=== PATIENT | female | born 1980 | race Caucasian/White ===

== ENCOUNTER 2019-07-01 09:28 | Outpatient (CLI) | payer MEDICAID, SELFPAY ==
--- NOTE | 2019-07-01 09:30 | US_ITS ---
WS: [id number] RIGHT UPPER QUADRANT ULTRASOUND HISTORY: Hep C COMPARISON: 02/02/2010. Liver: 14.5 cm in length. Normal size and echogenicity with no intrahepatic dilatation. No mass. Gallbladder: Prior cholecystectomy. CBD: 0.6 cm Pancreas: Normal size and echogenicity. Right kidney: 11.1 cm in length. Normal echogenicity with no mass or hydronephrosis. Aorta and IVC: Unremarkable. No ascites. US/US liver [id number] IMPRESSION: 1. Negative liver. 2. Prior cholecystectomy.
== END 2019-07-01 09:29 | disposition home or self-care (01) ==
PROVIDERS: Family Provider Family Medicine; PCP Family Medicine; Visit Provider Nurse Practitioner Family
DX: B18.2 Chronic viral hepatitis C (principal)
CPT/HCPCS: 76705

== ENCOUNTER → 2019-08-23 18:58 | Outpatient (BNVA) | payer MEDICAID, SELFPAY | PROVIDERS: Family Provider Family Medicine; PCP Family Medicine; Visit Provider Nurse Practitioner Family | DX: N89.8 Other specified noninflammatory disorders of vagina (principal) | CPT/HCPCS: 81000; 87491; 87591; 87661 ==

== ENCOUNTER → 2019-10-03 16:20 | Outpatient (BNVA) | payer MEDICAID, SELFPAY | PROVIDERS: Family Provider Family Medicine; PCP Family Medicine; Visit Provider Nurse Practitioner Family | DX: N39.0 Urinary tract infection, site not specified (principal); Z11.3 Encounter for screening for infections with a predominantly sexual mode of transmission | CPT/HCPCS: 81000; 87086; 87491; 87591; 87661 ==

== ENCOUNTER → 2019-10-18 11:15 | Outpatient (BNVA) | payer MEDICAID, SELFPAY | PROVIDERS: Family Provider Family Medicine; PCP Family Medicine; Visit Provider Internal Medicine | DX: B18.2 Chronic viral hepatitis C (principal) | CPT/HCPCS: 80053; 85025; 87522 ==

== ENCOUNTER → 2019-11-09 18:46 | Outpatient (BNVA) | payer MEDICAID, SELFPAY | PROVIDERS: Family Provider Family Medicine; PCP Family Medicine; Visit Provider Nurse Practitioner | DX: J02.9 Acute pharyngitis, unspecified (principal) | CPT/HCPCS: 87071; 87880 ==

== ENCOUNTER → 2020-05-01 08:43 | Outpatient (BNVA) | payer BC, MEDICAID, SELFPAY | PROVIDERS: Family Provider Family Medicine; PCP Family Medicine; Referring Provider Family Medicine; Visit Provider Anesthesiology Pain Medicine | DX: M25.561 Pain in right knee (principal); M25.562 Pain in left knee; F17.290 Nicotine dependence, other tobacco product, uncomplicated | CPT/HCPCS: 99204 ==

== ENCOUNTER → 2020-06-23 13:58 | Outpatient (BNVA) | payer BC, MEDICAID, SELFPAY | PROVIDERS: Family Provider Family Medicine; PCP Family Medicine; Visit Provider Obstetrics & Gynecology | DX: N39.3 Stress incontinence (female) (male) (principal); R10.2 Pelvic and perineal pain; G89.29 Other chronic pain; N81.10 Cystocele, unspecified | CPT/HCPCS: 81000 ==

== ENCOUNTER → 2020-06-29 08:50 | Outpatient (BNVA) | payer BC, MEDICAID, SELFPAY | PROVIDERS: Family Provider Family Medicine; PCP Family Medicine; Visit Provider Obstetrics & Gynecology | DX: R32 Unspecified urinary incontinence (principal) | CPT/HCPCS: 76830 ==

== ENCOUNTER → 2020-07-07 11:50 | Outpatient (BNVA) | payer BC, MEDICAID, SELFPAY | PROVIDERS: Family Provider Family Medicine; PCP Family Medicine; Visit Provider Obstetrics & Gynecology | DX: Z12.4 Encounter for screening for malignant neoplasm of cervix (principal) | CPT/HCPCS: 88175 ==

== ENCOUNTER → 2020-07-28 11:50 | Outpatient (BNVA) | payer BC, MEDICAID, SELFPAY | PROVIDERS: Family Provider Family Medicine; PCP Family Medicine; Visit Provider Obstetrics & Gynecology | DX: R87.610 Atypical squamous cells of undetermined significance on cytologic smear of cervix (ASC-US) (principal); R87.810 Cervical high risk human papillomavirus (HPV) DNA test positive | CPT/HCPCS: 88305 ==

== ENCOUNTER → 2020-08-03 09:21 | Outpatient (BNVA) | payer BC, MEDICAID, SELFPAY | PROVIDERS: Family Provider Family Medicine; PCP Family Medicine; Visit Provider Obstetrics & Gynecology | DX: N81.10 Cystocele, unspecified (principal); N39.3 Stress incontinence (female) (male); Z20.822 Contact with and (suspected) exposure to COVID-19 | CPT/HCPCS: 87635 ==

== ENCOUNTER 2020-08-08 13:15 | Outpatient (CLI) | payer BC, MEDICAID, SELFPAY ==
[2020-08-08 12:49] VITALS: BMI 22.7
[2020-08-08 13:28] LABS: Basophils % 0.7 %; Eosinophils # 0.1 10^3/uL (0.0-0.8); Eosinophils % 2.6 %; Hematocrit 37.4 % (37.0-47.0); Hemoglobin 12.3 g/dL (11.5-15.3); Lymphocytes # 2.2 10^3/uL (0.8-4.8); Lymphocytes % 47.7 %; Mean Corpuscular HGB Conc 32.9 g/dL (30.0-36.0); Mean Corpuscular Hemoglobin 28.1 pg (28.0-34.0); Mean Corpuscular Volume 85.4 fL (81-99); Mean Platelet Volume 9.6 fL (7.4-10.4); Monocytes # 0.6 10^3/uL (0.2-0.9); Monocytes % 12.5 %; Neutrophils # 1.65 10^3/uL (1.8-7.7); Neutrophils % 36.3 %; Nucleated Red Blood Cells % 0 %; Platelet Count 275 10^3/cmm (130-400); Red Blood Count 4.38 10^6/uL (4.1-5.3); Red Cell Distribution Width 12.3 % (12.1-15.1); White Blood Count 4.6 10^3/uL (4.0-10.0)
[2020-08-08 13:47] LABS: Sulfosalicylic Acid Urine Negative (Negative); Urine Appearance Cloudy (CLEAR); Urine Color Yellow (Yellow); pH Urine 8 (5-7)
[2020-08-08 13:48] LABS: Add Urine Microscopic? YES; Bilirubin Urine Neg (Negative); Blood Urine Neg (Negative); Glucose Urine UA Norm (Normal); Ketones Urine Negative (Negative); Leukocyte Esterase Urine Negative (Negative); Nitrate Urine Negative (Negative); OR HCG Qualitative Urine Negative (Negative); Protein Urine Neg (Negative); Specific Gravity, Urine 1.015 (1.005-1.030); Urobilinogen Urine Norm (Negative)
[2020-08-08 13:49] LABS: Anion Gap 14.2 (5-19); Blood Urea Nitrogen 14 mg/dL (6-20); Calcium 9.1 mg/dL (8.5-10.5); Carbon Dioxide 30 mmol/L (22-29); Chloride 101 mmol/L (98-107); Glomerular Filtration Rate 110.7 mL/min (90-130); Glucose 84 mg/dL (65-115); Osmolality Calculated 292 mOsm/kg (285-295); Potassium 4.2 mmol/L (3.5-5.1); Sodium 141 mmol/L (136-145)
[2020-08-08 13:50] LABS: Add Urine Culture? No; Amorphous Sediment Urine 3+ /hpf; Bacteria Urine 1+ /hpf; Mucus Urine TRACE /hpf; Squamous Epithelial Cell Urine 0-4 /hpf (0-5)
== END 2020-08-08 13:16 | disposition home or self-care (01) ==
LOC: OPS 11-20 15:48
PROVIDERS: PCP Family Medicine; Visit Provider Obstetrics & Gynecology
DX: Z01.818 Encounter for other preprocedural examination (principal); N81.10 Cystocele, unspecified; N39.3 Stress incontinence (female) (male)
CPT/HCPCS: 80048; 81001; 84703; 85025; 86850; 86900

== ENCOUNTER 2021-06-27 05:48 | Day surgery (SDC) | payer BC, MEDICAID, SELFPAY ==
[2021-06-22 12:55] VITALS: BMI 21.9
[2021-06-27] VITALS (9 sets, daily range): BP systolic 97–137; BP diastolic 54–102; PULSE 75–92; RESP 12–20; TEMP 36.1–36.9; O2SAT 99–100
[2021-06-27 06:24] LABS: Add Urine Microscopic? NO; Charge for UA Resulting for Rev
[2021-06-27] MEDS: scopolamine 1.5 Patch 1 PATCH TRANSDERMA (06:25)
[2021-06-27 06:33] LABS: Bilirubin Urine Neg (Negative); Blood Urine Neg (Negative); Glucose Urine UA Norm (Normal); Ketones Urine Negative (Negative); Leukocyte Esterase Urine Negative (Negative); Nitrate Urine Negative (Negative); OR HCG Qualitative Urine Negative (Negative); Protein Urine Neg (Negative); Specific Gravity, Urine 1.025 (1.005-1.030); Urine Appearance Clear (CLEAR); Urine Color Yellow (Yellow); Urobilinogen Urine Norm (Negative); pH Urine 5 (5-7)
[2021-06-27] MEDS: sodium chloride 0.9% 500 ML IV (06:35)
--- NOTE | 2021-06-27 06:38 | ANES.PREANE2 ---
Pre-Anesthetic Assessment Height/Weight: Height 1.7 m Weight 63.503 kg Temp Pulse Resp BP Pulse Ox 98.4 F 83 20 H 129/83 100 06/27/21 06:15 06/27/21 06:15 06/27/21 06:15 06/27/21 06:15 06/27/21 06:15 Preop Diagnosis: KAEL-2 Operation Date: 06/27/21 07:00 Proposed Procedures p Cervical Cone biopsy 18501/n87.1(Not Applicable) - Gamaliel Arora MD Familial anesthetic complications: None Was Beta Deborah taken within 24 hours: N/A Was Clonidine taken within 24 hours: N/A Last intake: Intake Last Liquid Date 06/26/21 Last Liquid Time 23:30 Last Solid Date 06/26/21 Last Solid Time 18:00 Social Tobacco methadone Exam alert, oriented x 3, clear to auscultation bilaterally and regular rate & rhythm Airway Mallampati: Class II Dentition: other (missing) Hepatic Hepatitis (Hep C (Patient stated she did not have any liver problems upon questioning)) Metabolic Thyroid Disease (patient deines) Anesthetic Plan ASA status: 3 Anesthesia: General Risk of > 500 ml blood loss (7ml/kg in children): No Medications/Allergies Home Medications Medication Instructions Recorded Confirmed Last Taken Type sumatriptan succinate 100 mg tablet 100 mg PO Q2H PRN 05/01/20 06/25/21 06/20/21 History methadone 10 mg/mL oral concentrate 30 mg PO DAILY 06/22/21 06/25/21 06/26/21 History Allergies Allergy/AdvReac Type Severity Reaction Status Date / Time No Known Allergies Allergy Verified 06/25/21 11:15 [facility] Anesthesia Medical History History of femur fracture surgery to both femur with metal rods and plates placed. Hypothyroidism Seizure disorder as a child Surgical History H/O breast augmentation History of tonsillectomy Family History Mother Hypertension Hepatitis Thyroid condition Family/Other Breast cancer maternal great aunts, age onset unknown Denies family history of Colon cancer Ovarian cancer Diabetes Clotting disorder Heart disease Hyperlipidemia Anesthesia complication Bleeding disorder Uterine cancer Stroke Social History (Updated 06/04/21 @ 08:58 by Hien Guerra RN) Other details last substance use: pain medication and methamphetamines, last use in 2019 Female Reproductive History Date of last menstrual period: 07/17/20 Data Anesthesia Urine 06/27/21 Range/Units 06:10 Urine Color Yellow (Yellow) Urine Appearance Clear (CLEAR) Urine pH 5 (5-7) Ur Specific [place] 1.025 (1.005-1.030) Urine Protein Neg (Negative) Urine Glucose (UA) Norm (Normal) Urine Ketones Negative (Negative) Urine Nitrate Negative (Negative) Urine Bilirubin Neg (Negative) Ur Leukocyte Esterase Negative (Negative) Cardiac Studies: No Data to Display
--- NOTE | 2021-06-27 06:56 | W.PM.OPSUD ---
Surgery/Procedure H&P Update DATE OF PROCEDURE: June 27, 2021 DATE H&P PERFORMED: 06/25/21 H&P UPDATE INFORMATION: I have reviewed H&P completed within last 30 days and Changes to prior documentation as noted here PREOP DIAGNOSIS: KAEL-2 PLANNED PROCEDURE: Operation Date: 06/27/21 07:00 Proposed Procedures p Cervical Cone biopsy 35071/n87.1(Not Applicable) - Gamaliel Arora MD
[2021-06-27] MEDS: sodium chloride 0.9% 1,000 ML 30 ML IV (07:26)
[2021-06-27 07:36] LABS: Basophils % 0.4 %; Eosinophils # 0.2 10^3/uL (0.0-0.8); Eosinophils % 3.3 %; Hematocrit 39.7 % (37.0-47.0); Hemoglobin 13.2 g/dL (11.5-15.3); Lymphocytes # 2.3 10^3/uL (0.8-4.8); Mean Corpuscular HGB Conc 33.2 g/dL (30.0-36.0); Mean Corpuscular Volume 87.3 fl (81-99); Mean Platelet Volume 9.9 fL (7.4-10.4); Monocytes # 0.6 10^3/uL (0.2-0.9); Neutrophils # 3.88 10^3/uL (1.8-7.7); Nucleated Red Blood Cells % 0 %; Platelet Count 273 10^3/cmm (130-400); Red Blood Count 4.55 10^6/uL (4.1-5.3)
[2021-06-27 07:55] LABS: Alanine Aminotransferase 29 U/L (0-33); Albumin Level 4.2 g/dL (3.5-5.2); Alkaline Phosphatase 94 IU/L (35-105); Anion Gap 12.6 (5-19); Aspartate Amino Transferase 25 U/L (0-32); Blood Urea Nitrogen 10 mg/dL (6-20); Calcium 9.1 mg/dL (8.5-10.5); Carbon Dioxide 25 mmol/L (22-29); Chloride 104 mmol/L (98-107); Globulin 2.7 g/dL (1.3-4.6); Glomerular Filtration Rate 92.7 mL/min (90-130); Glucose 87 mg/dL (65-115); Osmolality Calculated 284 mOsm/kg (285-295); Potassium 3.6 mmol/L (3.5-5.1); Sodium 138 mmol/L (136-145); Total Bilirubin 0.8 mg/dL (0.15-1.2); Total Protein 6.9 g/dL (6.6-8.7)
--- NOTE | 2021-06-27 09:24 | P.OP_ITS ---
Operative Report Date of procedure: June 27, 2021 Pre-op diagnosis: Preop Diagnosis KAEL-2 Procedure done: Cervical cone biopsy via [place] Estimated blood loss (mL): 5 IV fluids (mL): 700 Complications: none Procedure: After informed consent, the patient was taken to the operating room where general anesthesia was administered without difficulty. After administration of general anesthesia, the patient was placed in the dorsal lithotomy position, and prepped and draped in the usual sterile fashion. A time-out procedure was performed. The patient was examined under anesthesia and found to have a normal uterus with normal adnexa. A weighted speculum was then placed in the patient's vagina and the anterior lip of the cervix grasped with the singed toothed tenaculum A uterine sound was then advanced into the cervix to determine its direction and length. The decending cervical branchs of the uterine arteries were ligated with 2-0 Vicryl bilaterally at the level of the internal os. Attention was then turned to the cervix where it was stain with Lugol?s solution to hightlight the lesion. The paracervical area was then circumferentially infiltrated using Lidocaine 1% with epinephrine. A [email or web address] Cone Biopsy Excisor was used to cut the cone biopsy in circular fashion and following removal of the specimen a suture was placed at the 12 o?clock location and fixed in formalin. Bleeding was minimal. The patient tolerated the procedure well, sponge, lap and needle counts were correct times two She was taken to the recovery room in good condition.
--- NOTE | 2021-06-27 13:33 | ANE.PACU2 ---
Inpatient post-anesthesia follow up: Airway intact: Yes Vital signs: Temperature 97.0 F Pulse Rate 87 Respiratory Rate 18 Blood Pressure 116/78 Pulse Oximetry 100 Oxygen Delivery Me thod Room Air Oxygen Flow Rate 6 Fraction of Inspir ed Oxygen Hydration adequate: Yes Nausea and vomiting: No Pain level: 2 Mental status: Baseline
== END 2021-06-27 09:57 | disposition home or self-care (01) ==
PROVIDERS: PCP Family Medicine; Visit Provider Obstetrics & Gynecology
PROC: 0UB97ZZ Excision of Uterus, Via Natural or Artificial Opening (ICD-10-PCS; CPT 57520; principal; 2021-06-27 07:00)
DX: N87.1 Moderate cervical dysplasia (principal); Z86.19 Personal history of other infectious and parasitic diseases; E03.9 Hypothyroidism, unspecified
CPT/HCPCS: 57522; 36415; 80053; 81003; 81025; 84703; 85025; 86850; 86900; 88307; J0690; J1100; J1200; J1885; J2250; J2405; J2704; J3010; J3490; J7030; J7040

== ENCOUNTER 2021-10-13 14:04 | Emergency (ER) | payer BC, MEDICAID, SELFPAY ==
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
[2021-10-13 14:15] VITALS: BP 127/89; PULSE 73; RESP 18; TEMP 37.1; O2SAT 100; BMI 24.3
== END 2021-10-13 16:18 | disposition home or self-care (01) ==
PROVIDERS: Emergency Provider Emergency Medicine; PCP Family Medicine
DX: T40.2X1A Poisoning by other opioids, accidental (unintentional), initial encounter (principal); Z79.891 Long term (current) use of opiate analgesic
CPT/HCPCS: 99283

== ENCOUNTER 2022-01-26 20:52 | Emergency (ER) | payer BC, MEDICAID, SELFPAY ==
[2022-01-26 20:54] VITALS: BP 149/91; PULSE 100; RESP 17; TEMP 36.8; O2SAT 98
--- NOTE | 2022-01-26 21:11 | W.ED.ABDPA2 ---
HPI - Abdominal Pain General: Chief Complaint: Abdominal Pain Stated Complaint: ABD Pain Time Seen by Provider: 01/26/22 21:04 History of Present Illness: 41-year-old female who comes in with crampy abdominal pain with associated diarrhea. She states she had cramping in her mid and lower left-sided abdomen about an hour prior to arrival. She had 1 episode of diarrhea which was foul-smelling. She denies nausea or vomiting. She denies fever. She had a previous cholecystectomy. Associated Symptoms: Reports diarrhea; Denies chills, dysuria, fever(s), hematemesis, melena, nausea and vomiting Related Data: Date of Last Menstrual Period: 07/17/20 Review of Systems General: Reports: 10 or more systems reviewed and unremarkable except in HPI and below Const: Denies: fever(s) or chills GI: Reports: abdominal pain and diarrhea; Denies: nausea, vomiting, hematemesis, melena or mucus in stool : Denies: flank pain, difficulty voiding or dysuria PFSH ED PFSH: Medical History (Updated 01/26/22 @ 22:02 by Doris Underwood MD) History of femur fracture surgery to both femur with metal rods and plates placed. Hypothyroidism Seizure disorder as a child Surgical History (Updated 07/13/21 @ 08:49 by Hien Guerra RN) H/O breast augmentation History of tonsillectomy Family History Mother Hypertension Hepatitis Thyroid condition Family/Other Breast cancer maternal great aunts, age onset unknown Denies family history of Colon cancer Ovarian cancer Diabetes Clotting disorder Heart disease Hyperlipidemia Anesthesia complication Bleeding disorder Uterine cancer Stroke Social History (Updated 06/04/21 @ 08:58 by Hien Guerra RN) Other details last substance use: pain medication and methamphetamines, last use in 2019 Female Reproductive History: Date of last menstrual period: 07/17/20 Physical Exam Const: COMMON NORMALS: no acute distress, average body habitus and patient oriented x3 HENMT: COMMON NORMALS: normocephalic HEAD & SCALP: normocephalic Neck/C-Spine: COMMON NORMALS: full ROM Cardio: COMMON NORMALS: regular rate and regular rhythm RATE: regular rate RHYTHM: regular rhythm GI: COMMON NORMALS: Normal to inspection, nondistended, normoactive bowel sounds present and Soft to palpation; negative for non-tender PALPATION: Yes Soft to palpation OTHER: Tenderness in the left lower quadrant. Abdomen is soft, no rebound or guarding. Extremity: GENERAL: Yes normal exam except as noted Neuro: COMMON NORMALS: patient oriented x3 Skin: COMMON NORMALS: no rashes or lesions noted GENERAL SKIN EXAM: no rashes or lesions noted Course ED course: Patient's been evaluated in the emergency department. She had an IV placed and labs obtained. She has been given IV Toradol for pain. Her white blood cell count is normal. Urinalysis is negative. She is had no further diarrhea while in the ER. Likely this is viral gastroenteritis. Do not feel that further work-up or admission is indicated and feel she stable for discharge home. Vital Signs: Vital signs: Vital Signs Temperature 98.2 F 01/26/22 20:54 Pulse Rate 100 01/26/22 20:54 Respiratory Rate 17 01/26/22 20:54 Blood Pressure 149/91 01/26/22 20:54 Pulse Oximetry 98 01/26/22 20:54 Oxygen Delivery Me thod 01/26/22 20:54 MDM - Abdominal Pain Medical Decision Making Patient has benign abdominal examination. She is afebrile. Her white blood cell count is normal. She had 1 episode of diarrhea with no risk factors for C. difficile colitis. Hemoglobin is normal. Urinalysis is negative. She is tolerating p.o. fluids and feeling better after IV Toradol. Likely this is a viral gastroenteritis. Patient stable for discharge home. She can take Imodium 4 times a day as needed for diarrhea. Return precautions have been discussed. Differential Diagnosis Likely abdominal pain, constipation, gastroenteritis and pancreatitis Lab Data : 01/26/22 21:13 01/26/22 21:13 Labs/Radiology: Laboratory Results WBC 5.9 10^3/uL (4.0-10.0) 01/26/22 21:13 RBC 5.18 10^6/uL (4.1-5.3) 01/26/22 21:13 Hgb 14.6 g/dL (11.5-15.3) 01/26/22 21:13 Hct 44.9 % (37.0-47.0) 01/26/22 21:13 MCV 86.7 fl (81-99) 01/26/22 21:13 MCH 28.2 pg (28.0-34.0) 01/26/22 21:13 MCHC 32.5 g/dL (30.0-36.0) 01/26/22 21:13 RDW 12.1 % (12.1-15.1) 01/26/22 21:13 Plt Count 326 10^3/cmm (130-400) 01/26/22 21:13 MPV 9.5 fL (7.4-10.4) 01/26/22 21:13 Neut % (Auto) 43.8 % 01/26/22 21:13 Lymph % (Auto) 42.6 % 01/26/22 21:13 [place] % (Auto) 9.7 % 01/26/22 21:13 Eos % (Auto) 2.7 % 01/26/22 21:13 Baso % (Auto) 0.9 % 01/26/22 21:13 Neut # (Auto) 2.57 10^3/uL (1.8-7.7) 01/26/22 21:13 Lymph # (Auto) 2.5 10^3/uL (0.8-4.8) 01/26/22 21:13 [place] # (Auto) 0.6 10^3/uL (0.2-0.9) 01/26/22 21:13 Eos # (Auto) 0.2 10^3/uL (0.0-0.8) 01/26/22 21:13 Baso # (Auto) 0.1 10^3/uL (0.0-0.1) 01/26/22 21:13 Nucleated RBC % (auto) 0 % 01/26/22 21:13 Nucleated RBCs # 0.0 /100WBC 01/26/22 21:13 Sodium Cancelled 01/26/22 21:13 Potassium Cancelled 01/26/22 21:13 Chloride Cancelled 01/26/22 21:13 Carbon Dioxide Cancelled 01/26/22 21:13 Anion Gap Cancelled 01/26/22 21:13 BUN Cancelled 01/26/22 21:13 Creatinine Cancelled 01/26/22 21:13 GFR Calculation Cancelled 01/26/22 21:13 Glucose Cancelled 01/26/22 21:13 Calculated Osmolality Cancelled 01/26/22 21:13 Calcium Cancelled 01/26/22 21:13 Total Bilirubin Cancelled 01/26/22 21:13 AST Cancelled 01/26/22 21:13 ALT Cancelled 01/26/22 21:13 Alkaline Phosphatase Cancelled 01/26/22 21:13 Total Protein Cancelled 01/26/22 21:13 Albumin Cancelled 01/26/22 21:13 Globulin Cancelled 01/26/22 21:13 Lipase Cancelled 01/26/22 21:13 Urine Color Yellow (Yellow) 01/26/22 21:12 Urine Appearance Clear (CLEAR) 01/26/22 21:12 Urine pH 5 (5-7) 01/26/22 21:12 Ur Specific [place] 1.020 (1.005-1.030) 01/26/22 21:12 Urine Protein Neg (Negative) 01/26/22 21:12 Urine Glucose (UA) Norm (Normal) 01/26/22 21:12 Urine Ketones Negative (Negative) 01/26/22 21:12 Urine Blood 2+ (Negative) H 01/26/22 21:12 Urine Nitrate Negative (Negative) 01/26/22 21:12 Urine Bilirubin Neg (Negative) 01/26/22 21:12 Urine Urobilinogen 1 mg/dL (Negative) H 01/26/22 21:12 Ur Leukocyte Esterase Trace (Negative) H 01/26/22 21:12 Urine RBC None /hpf (0-2) 01/26/22 21:12 Urine WBC 0-4 /hpf (0-5) H 01/26/22 21:12 Ur Squamous Epith Cells 5-10 /hpf (0-5) H 01/26/22 21:12 Amorphous Sediment Not Reportable 01/26/22 21:12 Urine Bacteria None /hpf (NONE) 01/26/22 21:12 Discharge Plan Discharge Patient Disposition: Home Clinical Impression: Gastroenteritis Condition: Stable Prescriptions: No Action sumatriptan succinate 100 mg tablet 100 mg PO Q2H PRN (Reason: Headache) Rx Instructions: do not exceed 2 doses per 24 hrs methadone 10 mg/mL Concentrate 30 mg PO DAILY ibuprofen 800 mg tablet 800 mg PO TID PRN (Reason: pain) Qty: 60 0RF acetaminophen 325 mg capsule 325 mg PO Q4H PRN (Reason: fever or pain) Qty: 60 0RF Narcan 4 mg/actuation spray,non-aerosol 4 mg intranasal Q2M PRN (Reason: opioid overdose) Qty: 2 0RF Rx Instructions: spray 1 dose into ONE nostril; alternate nostrils w each dose until help arrives Discharge Orders: Discharge ED (Routine); Ordered 01/26/22 Ordered By: Doris Underwood Referrals: Mono Madrigal MD [Primary Care Provider] - Discharge Diet: Advance as tolerated Discharge Activity: Resume usual activity Patient Instructions: Gastroenteritis (ED), Opioid Safety, Pain Management Activity Restrictions/Additional Instructions: Take Imodium up to 4 times daily as needed for diarrhea. Take Tylenol and/or ibuprofen as needed for pain. Make sure you are taking plenty of fluids. Avoid milk products. Return for symptoms are worsening. Follow-up as needed with your primary care doctor. Coding Level of Care Code ED Environmental Conflict Manager for Chg Fwd Exam Detailed
[2022-01-26 21:19] LABS: Basophils # 0.1 10^3/uL (0.0-0.1); Basophils % 0.9 %; Eosinophils # 0.2 10^3/uL (0.0-0.8); Eosinophils % 2.7 %; Hematocrit 44.9 % (37.0-47.0); Hemoglobin 14.6 g/dL (11.5-15.3); Lymphocytes # 2.5 10^3/uL (0.8-4.8); Lymphocytes % 42.6 %; Mean Corpuscular HGB Conc 32.5 g/dL (30.0-36.0); Mean Corpuscular Hemoglobin 28.2 pg (28.0-34.0); Mean Corpuscular Volume 86.7 fl (81-99); Mean Platelet Volume 9.5 fL (7.4-10.4); Monocytes # 0.6 10^3/uL (0.2-0.9); Monocytes % 9.7 %; Neutrophils # 2.57 10^3/uL (1.8-7.7); Neutrophils % 43.8 %; Nucleated Red Blood Cells % 0 %; Platelet Count 326 10^3/cmm (130-400); Red Blood Count 5.18 10^6/uL (4.1-5.3); Red Cell Distribution Width 12.1 % (12.1-15.1); White Blood Count 5.9 10^3/uL (4.0-10.0)
[2022-01-26] MEDS: ketorolac 30 mg/mL INJ IVP (21:25)
[2022-01-26] MEDS: ondansetron 2 mg/ML SDV 2 mL 4 MG IVP (21:26)
[2022-01-26 21:49] LABS: Add Urine Microscopic? YES; Bilirubin Urine Neg (Negative); Blood Urine 2+ (Negative); Glucose Urine UA Norm (Normal); Ketones Urine Negative (Negative); Leukocyte Esterase Urine Trace (Negative); Nitrate Urine Negative (Negative); Protein Urine Neg (Negative); Urine Appearance Clear (CLEAR); Urine Color Yellow (Yellow); Urobilinogen Urine 1 mg/dL (Negative); pH Urine 5 (5-7)
[2022-01-26 21:51] LABS: Add Urine Culture? No; WBC Urine 0-4 /hpf (0-5)
[2022-01-26 22:10] VITALS: PULSE 92; RESP 18; O2SAT 98
== END 2022-01-26 22:05 | disposition home or self-care (01) ==
PROVIDERS: Emergency Provider Emergency Medicine; PCP Family Medicine
DX: K52.9 Noninfective gastroenteritis and colitis, unspecified (principal)
CPT/HCPCS: 81001; 85025; 96374; 96375; 99284; J1885; J2405

== ENCOUNTER 2022-02-14 11:08 | Emergency (ER) | payer BC, MEDICAID, SELFPAY ==
[2022-02-14 11:19] VITALS: BP 132/91; PULSE 92; RESP 16; TEMP 36.6; O2SAT 98
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
[2022-02-14] MEDS: tetanus-dipt-pertussis 0.5 mL SDV IM (11:43)
[2022-02-14 11:49] VITALS: BP 132/91; PULSE 92; RESP 16; TEMP 36.6; O2SAT 98
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
== END 2022-02-14 11:45 | disposition home or self-care (01) ==
PROVIDERS: Emergency Provider Family Medicine; PCP Family Medicine
DX: T22.231A Burn of second degree of right upper arm, initial encounter (principal); X08.8XXA Exposure to other specified smoke, fire and flames, initial encounter; Z23 Encounter for immunization
CPT/HCPCS: 71045; 90471; 90715; 99283

== ENCOUNTER → 2022-03-02 16:21 | Outpatient (BNVA) | payer BC, MEDICAID, SELFPAY | PROVIDERS: PCP Family Medicine; Visit Provider Registered Nurse Neonatal Intensive Care | DX: N39.0 Urinary tract infection, site not specified (principal); N76.0 Acute vaginitis; B96.89 Other specified bacterial agents as the cause of diseases classified elsewhere | CPT/HCPCS: 81000 ==

== ENCOUNTER 2022-04-09 22:55 | Emergency (ER) | payer BC, MEDICAID, SELFPAY ==
[2022-04-09 22:59] VITALS: BP 130/89; PULSE 110; RESP 20; TEMP 37; O2SAT 95; BMI 20.8
--- NOTE | 2022-04-10 00:05 | XRR_ITS ---
PROCEDURE INFORMATION: Exam: XR Right Femur Exam date and time: 04/10/2022 12:41 AM Age: 41 years old Clinical indication: Swelling, leg or foot; Thigh; Right; Prior surgery; Surgery type: Femoral plate fixation; Patient HX: C/O RT upper leg pain with swelling. TECHNIQUE: Imaging protocol: Radiologic exam of the Right femur. Views: 2 views. COMPARISON: No relevant prior studies available. FINDINGS: Bones/joints: No acute fracture or dislocation visualized. Distal right femur ORIF grossly intact with old distal femur deformity. Mild right hip DJD. Soft tissues: Unremarkable. XR/XR femur RT min 2V* 12044 IMPRESSION: 1. No acute finding visualized. 2. Distal right femur old deformity/prior trauma with ORIF. If pain persists, follow with orthopedics.
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
[2022-04-10 01:10] VITALS: PULSE 94; RESP 20; O2SAT 97
== END 2022-04-10 01:12 | disposition home or self-care (01) ==
PROVIDERS: Emergency Provider Nurse Practitioner Family; PCP Family Medicine
DX: S76.911A Strain of unspecified muscles, fascia and tendons at thigh level, right thigh, initial encounter (principal); W22.09XA Striking against other stationary object, initial encounter
CPT/HCPCS: 73552; 99283

== ENCOUNTER → 2022-07-19 12:52 | Outpatient (BNVA) | payer BC, MEDICAID, SELFPAY | PROVIDERS: PCP Family Medicine; Visit Provider Obstetrics & Gynecology | DX: Z01.818 Encounter for other preprocedural examination (principal); R87.810 Cervical high risk human papillomavirus (HPV) DNA test positive; R87.610 Atypical squamous cells of undetermined significance on cytologic smear of cervix (ASC-US); R87.619 Unspecified abnormal cytological findings in specimens from cervix uteri | CPT/HCPCS: 81025; 87624; 88305 ==

== ENCOUNTER 2022-09-04 12:18 | Observation (INO) | payer BC, MEDICAID, SELFPAY ==
[2022-09-03 13:13] VITALS: BMI 20.7
[2022-09-03 13:50] LABS: Basophils % 0.5 %; Eosinophils # 0.2 10^3/uL (0.0-0.8); Hematocrit 42.3 % (37.0-47.0); Hemoglobin 14.3 g/dL (11.5-15.3); Lymphocytes # 2.5 10^3/uL (0.8-4.8); Lymphocytes % 32.1 %; Mean Corpuscular HGB Conc 33.8 g/dL (30.0-36.0); Mean Corpuscular Hemoglobin 29.2 pg (28.0-34.0); Mean Corpuscular Volume 86.5 fl (81-99); Mean Platelet Volume 9.5 fL (7.4-10.4); Monocytes # 0.6 10^3/uL (0.2-0.9); Monocytes % 8.2 %; Neutrophils # 4.32 10^3/uL (1.8-7.7); Neutrophils % 55.8 %; Nucleated Red Blood Cells % 0 %; Platelet Count 301 10^3/cmm (130-400); Red Blood Count 4.89 10^6/uL (4.1-5.3); Red Cell Distribution Width 11.9 % (12.1-15.1); White Blood Count 7.7 10^3/uL (4.0-10.0)
[2022-09-03 13:58] LABS: OR HCG Qualitative Urine Negative (Negative); Specific Gravity, Urine 1.015 (1.005-1.030); Urine Appearance SL Hazy (CLEAR); Urine Color Yellow (Yellow); pH Urine 7 (5-7)
[2022-09-03 13:59] LABS: Add Urine Microscopic? YES; Bilirubin Urine Neg (Negative); Blood Urine Neg (Negative); Glucose Urine UA Norm (Normal); Ketones Urine Negative (Negative); Leukocyte Esterase Urine Negative (Negative); Nitrate Urine Negative (Negative); Protein Urine Neg (Negative); Urobilinogen Urine Norm (Negative)
[2022-09-03 14:17] LABS: Alanine Aminotransferase 61 U/L (0-33); Albumin Level 4.4 g/dL (3.5-5.2); Alkaline Phosphatase 107 U/L (35-105); Anion Gap 14.8 (5-19); Aspartate Amino Transferase 53 U/L (0-32); Blood Urea Nitrogen 14 mg/dL (6-20); Calcium 9.1 mg/dL (8.5-10.5); Carbon Dioxide 27 mmol/L (22-29); Chloride 100 mmol/L (98-107); Globulin 3.3 g/dL (1.3-4.6); Glomerular Filtration Rate 68.7 mL/min (90-130); Glucose 83 mg/dL (65-115); Osmolality Calculated 286 mOsm/kg (285-295); Potassium 3.8 mmol/L (3.5-5.1); Sodium 138 mmol/L (136-145); Total Bilirubin 0.5 mg/dL (0.15-1.2); Total Protein 7.7 g/dL (6.6-8.7)
[2022-09-03 14:21] LABS: Add Urine Culture? No; Amorphous Sediment Urine AMORPHOUS PHOSPHATES /hpf; Bacteria Urine TRACE /hpf; Squamous Epithelial Cell Urine 0-4 /hpf (0-5)
--- NOTE | 2022-09-03 17:50 | ANES.PREANE2 ---
Pre-Anesthetic Assessment Height/Weight: Height 1.7 m Weight 59.874 kg Operation Date: 09/04/22 10:10 Proposed Procedures p Anterior Repair Anterior Colporrhaphy(Not Applicable) - Gamaliel Aroar MD s [Anterior colporrhaphy 06719, Single incision mid urethral sling 66431], N81.10, R32(Not Applicable) - Gamaliel Arora MD Familial anesthetic complications: none Was Beta Deborah taken within 24 hours: N/A Was Clonidine taken within 24 hours: N/A Social Tobacco and No alcohol Exam alert, oriented x 3 and regular rate & rhythm Airway Submandibular: within normal limits Cervical ROM: within normal limits Mallampati: Class II Dentition: chipped Pulmonary Chronic Obstructive Pulmonary Disease Hepatic Hepatitis (C) Metabolic Thyroid Disease Neuropsych Headache Anesthetic Plan ASA status: 2 Anesthesia: General Medications/Allergies Home Medications Medication Instructions Recorded Confirmed Last Taken Type sumatriptan succinate 100 mg 100 mg PO Q2H PRN Headache 06/25/22 09/03/22 09/03/22 History tablet (Imitrex) metronidazole 500 mg tablet 500 mg PO BID 7 days #14 tabs 09/02/22 09/03/22 09/03/22 Rx Allergies Allergy/AdvReac Type Severity Reaction Status Date / Time No Known Allergies Allergy Verified 09/02/22 10:29 [facility] Anesthesia Medical History History of femur fracture surgery to both femur with metal rods and plates placed. Hypothyroidism Seizure disorder as a child Surgical History H/O breast augmentation History of tonsillectomy Family History Mother Hypertension Hepatitis Thyroid condition Family/Other Breast cancer maternal great aunts, age onset unknown Denies family history of Colon cancer Ovarian cancer Diabetes Clotting disorder Heart disease Hyperlipidemia Anesthesia complication Bleeding disorder Uterine cancer Stroke Social History Substance/Drug Use: former Other details last substance use: pain medication and methamphetamines, last use in 2019 Data Anesthesia 09/03/22 13:37 09/03/22 13:37 Short CBC 09/03/22 Range/Units 13:37 WBC 7.7 (4.0-10.0) 10^3/uL Hgb 14.3 (11.5-15.3) g/dL Hct 42.3 (37.0-47.0) % MCV 86.5 (81-99) fl Plt Count 301 (130-400) 10^3/cmm Neut % (Auto) 55.8 % Neut # (Auto) 4.32 (1.8-7.7) 10^3/uL BMP 09/03/22 13:37 Sodium 138 Potassium 3.8 Chloride 100 Carbon Dioxide 27 BUN 14 Creatinine 0.9 Glucose 83 Calcium 9.1 Liver Function 09/03/22 Range/Units 13:37 Total Bilirubin 0.5 (0.15-1.2) mg/dL AST 53 H (0-32) U/L ALT 61 H (0-33) U/L Alkaline Phosphatase 107 H (35-105) U/L Albumin 4.4 (3.5-5.2) g/dL Urine 09/03/22 Range/Units 12:25 Urine Color Yellow (Yellow) Urine Appearance Sl hazy A (CLEAR) Urine pH 7 (5-7) Ur Specific [place] 1.015 (1.005-1.030) Urine Protein Neg (Negative) Urine Glucose (UA) Norm (Normal) Urine Ketones Negative (Negative) Urine Nitrate Negative (Negative) Urine Bilirubin Neg (Negative) Ur Leukocyte Esterase Negative (Negative) Urine RBC None (0-2) /hpf Urine WBC None (0-5) /hpf Blood Bank 09/03/22 13:37 Blood Type O Positive Rho(D) Type Positive Antibody Screen Negative Cardiac Studies: No Data to Display
[2022-09-04] VITALS (16 sets, daily range): BP systolic 91–140; BP diastolic 56–98; PULSE 58–92; RESP 15–18; TEMP 36.3–36.9; O2SAT 96–100
[2022-09-04] MEDS: sodium chloride 0.9% 500 ML IV (08:57)
[2022-09-04] MEDS: scopolamine 1.5 Patch 1 PATCH TRANSDERMA (09:47)
--- NOTE | 2022-09-04 10:03 | W.PM.OPSUD ---
Surgery/Procedure H&P Update DATE OF PROCEDURE: September 04, 2022 DATE H&P PERFORMED: 09/02/22 H&P UPDATE INFORMATION: I have reviewed H&P completed within last 30 days, I have examined patient prior to procedure and No changes to prior documentation PREOP DIAGNOSIS: cystocele stage 2, urinary stress incontinenece PLANNED PROCEDURE: Operation Date: 09/04/22 10:10 Proposed Procedures p Anterior Repair Anterior Colporrhaphy(Not Applicable) - Gamaliel Arora MD s [Anterior colporrhaphy 51643, Single incision mid urethral sling 16016], N81.10, R32(Not Applicable) - Gamaliel Arora MD
[2022-09-04] MEDS: sodium chloride 0.9% 1,000 ML 30 ML IV (10:26)
[2022-09-04] MEDS: ceFAZolin 2,000 MG in sodium chloride 0.9% (plus) 50 ML 100 MG IV (10:36)
[2022-09-04] MEDS: lidocaine-epi 2% 20 mL INJ INJECTION (11:41)
[2022-09-04] MEDS: estrogens Conjugated Cream 30 gm 1 APPLIC VAGINAL (11:49)
--- NOTE | 2022-09-04 12:01 | PC.NURSE ---
Pt arrived to PACU, resting comfortably, oral airway in place, O2 at 6L/min via simple mask. Samaniego catheter patent and draining. Peripad in place-no drainage noted. SCD's in place and running.
--- NOTE | 2022-09-04 12:02 | P.OP_ITS ---
Operative Report Date of procedure: September 04, 2022 Pre-op diagnosis: Preop Diagnosis cystocele stage 2, urinary stress incontinenece Post-op diagnosis: Same as above Procedure done: Anterior colporrhaphy augmented with allograft. Single incision mid urethral sling. Cystoscopy. Implants: Coloplast Altis sling Surgeon: Gamaliel Arora MD Estimated blood loss (mL): 100 IV fluids (mL): 800 Urine output (mL): 100 Procedure: After obtaining informed consent, the patient was taken to the operating room and placed in the supine position, given general anesthesia, and prepped and draped in sterile fashion. The abdomen, vulva and vagina were prepped and draped in a sterile manner. A time out procedure was performed. The anterior vaginal mucosa beneath the midurethra was infiltrated with 0.5% Marcaine with epinephrine. A vertical midline incision was made beneath the midurethra, nearly 1.5 cm length. Careful submucosal dissection was performed bilaterally up to the interior portion of the inferior pubic ramus. The insertion of adductor longus tendon on the patient?s pubic ramus was identified as reference land apolonia. Palpated the notch along the internal edge of ischiopubic ramus where the adductor longus tendon and the inferior pubic ramus meet. The Altis single incision sling (SIS) was selected. Then the needle of the SIS inserted aiming at the location of this notch. One of the integrated self-fixating tips place onto the needle by sliding it over the end of the needle. The needle/sling assembly was inserted toward the location of identified reference notch making sure that the flat of the handle is perpendicular to the desired path. The needle was tracked along the posterior surface of the ischiopubic ramus until the midline apolonia on the mesh is approximately at the midline position under the urethra. The needle was removed and the same was repeated on the contralateral side until the appropriate sling tension under the urethra was achieved ensuring that the mesh lays flat. The needle was removed and vaginal incision was closed in a running interlocking fashion with 2-0 Vicryl. Then proceeded to perform the anterior colporrhaphy. The vaginal mucosa was then injected in the midline with normal saline. The vaginal mucosa was scored in the midline with the Bovie approximately 1 cm medial to the urethral meatus to 1 cm distal to the cervix. This vaginal mucosa was then undermined and then incised in the midline with the Metzenbaum scisso rs. The lateral aspects of the vaginal mucosa were then grasped with the Allis clamps and the vaginal mucosa was then dissected off the underlying fascia with the Metzenbaum scissors. Again, there was noted to be quite a bit of oozing at the incision, which was controlled with cautery. After adequate dissection was performed, bilaterally. The Coloplast allograft was modified at time of application to fit spacea, 3 x 3 cm piece . The allograft was placed in front of cystocele ready to be implanted facing the vagina mucosa. Suture is placed at distal end of graft and placed towards cervix. Final suture is placed on proximal portion of the graft to complete the placement overlying the bladder. Then Interrupted vertical mattress sutures of 0 Vicryl were used to elevate the cystocele superiorly. The excessive vaginal mucosa was then trimmed with the Metzenbaum scissors and the vaginal mucosa was then reapproximated in the running interlocking fashion with 2-0 Vicryl. Then the Samaniego catheter was removed and cystoscope was inserted. The bladder was filled with sterile water. Complete evaluation of the bladder mucosa was performed noting no lacerations, dimpling, tears, bleeding of the mucosa or muscular layers. Both ureteral orifices were identified. Prompt excretion of urine from both ureteral orifices was noted. Cystoscope was withdrawn. The Samaniego catheter was replaced. Ex cellent hemostasis was obtained. A vaginal pack is placed overnight as postoperative support for the vaginal tissues after graft placement and closure of vaginal incisions. Sponge, lap, needle, and instrument counts were correct times three. The patient was taken to the recovery room, awake and in stable condition. This documentation was created by [employer] hand wrapper operator software (known for inherent hand wrapper operator error). Every effort was made to assure accuracy of hand wrapper operator. But this EMR does not have a spelling medical dictionary.
--- NOTE | 2022-09-04 12:13 | PC.NURSE ---
Pt waking up, oral airway removed, pt tolerated well.
[2022-09-04] MEDS: dextrose 5%-lactated ringers 1,000 ML 125 ML IV ×2 (13:17→20:13)
--- NOTE | 2022-09-04 13:58 | P.ANESUD_ITS ---
Pre-Anesthetic Update Pre-Anesthetic Assessment: Date of Surgery/Procedure: 09/04/22 Preop Citlaly gnosis: cystocele stage 2, urinary stress incontinenece Proposed Procedure: Operation Date: 09/04/22 10:10 Proposed Procedures p Anterior Repair Anterior Colporrhaphy(Not Applicable) - Gamaliel Arora MD s [Anterior colporrhaphy 02540, Single incision mid urethral sling 26786], N81.10, R32(Not Applicable) - Gamaliel Arora MD Any changes to Pre-Anesthetic Assessment?: No Last Intake: Intake Last Liquid Date 09/03/22 Last Liquid Time 20:00 Last Solid Date 09/03/22 Last Solid Time 20:00 Labs Last 48hrs: Short CBC 09/03/22 Range/Units 13:37 WBC 7.7 (4.0-10.0) 10^3/ uL Hgb 14.3 (11.5-15.3) g/dL Hct 42.3 (37.0-47.0) % MCV 86.5 (81-99) fl Plt Count 301 (130-400) 10^3/c mm Neut % (Auto) 55.8 % Neut # (Auto) 4.32 (1.8-7.7) 10^3/u L BMP 09/03/22 13:37 Sodium 138 Potassium 3.8 Chloride 100 Carbon Dioxide 27 BUN 14 Creatinine 0.9 Glucose 83 Calcium 9.1 Liver Function 09/03/22 Range/Units 13:37 Total Bilirubin 0.5 (0.15-1.2) mg/dL AST 53 H (0-32) U/L ALT 61 H (0-33) U/L Alkaline Phosphata se 107 H (35-105) U/L Albumin 4.4 (3.5-5.2) g/dL Urine 09/03/22 Range/Units 12:25 Urine Color Yellow (Yellow) Urine Appearance Sl hazy A (CLEAR) Urine pH 7 (5-7) Ur Specific Gravit y 1.015 (1.005-1.030) Urine Protein Neg (Negative) Urine Glucose (UA) Norm (Normal) Urine Ketones Negative (Negative) Urine Nitrate Negative (Negative) Urine Bilirubin Neg (Negative) Ur Leukocyte Ranjana ase Negative (Negative) Urine RBC None (0-2) /hpf Urine WBC None (0-5) /hpf Blood Bank 09/03/22 13:37 Blood Type O Positive Rho(D) Type Positive Antibody Screen Negative Vitals: Temperature 98.2 F 09/04/22 12:31 Temperature Source Temporal Artery S can 09/04/22 12:31 Pulse Rate 74 09/04/22 12:31 Respiratory Rate 16 09/04/22 12:31 Blood Pressure 131/92 09/04/22 12:31 Blood Pressure Vicky n 105 09/04/22 12:31 Pulse Oximetry 100 09/04/22 12:31 Oxygen Delivery Me thod Room Air 09/04/22 12:31 Oxygen Flow Rate 6 09/04/22 12:11 Exam: Pre-Anes Outpt Exam: alert, oriented x 3, clear to auscultation bilaterally and regular rate & rhythm Cardiac Studies: No Data to Display
--- NOTE | 2022-09-04 14:58 | ANE.PACU2 ---
Inpatient post-anesthesia follow up: Airway intact: Yes Vital signs: Temperature 98.2 F Pulse Rate 74 Respiratory Rate 16 Blood Pressure 131/92 Pulse Oximetry 100 Oxygen Delivery Me thod Room Air Oxygen Flow Rate 6 Fraction of Inspir ed Oxygen Hydration adequate: Yes Nausea and vomiting: No Pain level: 3 Mental status: Baseline
[2022-09-04] MEDS: docusate sodium 100 mg Capsule PO (18:21)
[2022-09-04] MEDS: ketorolac 30 mg/mL INJ IVP ×2 (18:21→23:54)
[2022-09-04] MEDS: metroNIDAZOLE 500 MG Tablet PO (18:22)
[2022-09-04] MEDS: HYDROcodone-acetaminophen 5-325 mg Tablet PO (20:02)
[2022-09-04] MEDS: nicotine 21 mg Patch 1 PATCH TRANSDERMA (21:12)
[2022-09-05] MEDS: HYDROcodone-acetaminophen 5-325 mg Tablet PO ×2 (02:20→10:27)
[2022-09-05 04:00] VITALS: BP 101/61; PULSE 74; RESP 16
[2022-09-05] MEDS: ketorolac 30 mg/mL INJ IVP (05:17)
[2022-09-05] MEDS: simethicone 80 mg Chew PO (05:17)
[2022-09-05 05:40] LABS: Hematocrit 34.5 % (37.0-47.0); Hemoglobin 11.4 g/dL (11.5-15.3); Mean Corpuscular Hemoglobin 29.2 pg (28.0-34.0); Mean Corpuscular Volume 88.2 fl (81-99); Mean Platelet Volume 9.9 fL (7.4-10.4); Platelet Count 244 10^3/cmm (130-400); Red Blood Count 3.91 10^6/uL (4.1-5.3); White Blood Count 8.2 10^3/uL (4.0-10.0)
[2022-09-05] MEDS: docusate sodium 100 mg Capsule PO (10:27)
[2022-09-05 10:30] VITALS: BP 113/70; PULSE 72
--- NOTE | 2022-09-05 10:40 | PM.OBGYDC ---
Discharge Providers AMBULATORY SERVICE REPRESENTATIVE Date of Admission: 09/04/22 12:18 Date of Discharge: 09/05/22 Attending Provider at Admission: Gamaliel Arora MD Attending Provider at Discharge: Gamaliel Arora MD Primary AMBULATORY SERVICE REPRESENTATIVE: Gamaliel Arora MD Primary Care Provider: Mono Madrigal MD Reason for Visit Reason for Visit: N81.10, R32 Hospital Course Hospital Course Mrs. Huddleston with 43-year-old female with a history of cystocele stage II and stress incontinence. Admitted for planned anterior colporrhaphy augmented with allograft and single incision mid urethral sling. These were performed without complication. She is afebrile hemodynamically stable postoperative day 1. PVR within normal limits. Tolerating diet well. Pain under control. Ambulating without difficulty. Physical Exam Narrative: GA: Alert and oriented ?3. HEENT: WNL. Heart: Regular rate and rhythm. Lungs: Clear to auscultation bilaterally. Abdomen: Bowel sounds present, minimal tenderness. FOUNTAIN PEN TURNER: Spotting bleeding. Extremities: No edema, no cyanosis, no calves pain. Urinary Catheter Management: [place]: Cath Placed During This Visit: yes, but has since been removed by the nurse Reason for Continuing Indwelling Catheter: Decision to DC Catheter Urinary Catheter Date of Insertion: 09/04/22 Urinary Catheter Time of Insertion: 11:03 Date Urinary Catheter Removed: 09/05/22 Time Urinary Catheter Discontinued: 05:38 History History History 3 Term 3 0 Miscarriages/Ectopic 0 Living Children 3 Discharge Data Studies Completed and Pending Laboratory Results WBC 8.2 10^3/uL (4.0-10.0) 09/05/22 05:30 RBC 3.91 10^6/uL (4.1-5.3) L 09/05/22 05:30 Hgb 11.4 g/dL (11.5-15.3) L 09/05/22 05:30 Hct 34.5 % (37.0-47.0) L 09/05/22 05:30 MCV 88.2 fl (81-99) 09/05/22 05:30 MCH 29.2 pg (28.0-34.0) 09/05/22 05:30 MCHC 33.0 g/dL (30.0-36.0) 09/05/22 05:30 RDW 12.0 % (12.1-15.1) L 09/05/22 05:30 Plt Count 244 10^3/cmm (130-400) 09/05/22 05:30 MPV 9.9 fL (7.4-10.4) 09/05/22 05:30 Neut % (Auto) 55.8 % 09/03/22 13:37 Lymph % (Auto) 32.1 % 09/03/22 13:37 [place] % (Auto) 8.2 % 09/03/22 13:37 Eos % (Auto) 3.0 % 09/03/22 13:37 Baso % (Auto) 0.5 % 09/03/22 13:37 Neut # (Auto) 4.32 10^3/uL (1.8-7.7) 09/03/22 13:37 Lymph # (Auto) 2.5 10^3/uL (0.8-4.8) 09/03/22 13:37 [place] # (Auto) 0.6 10^3/uL (0.2-0.9) 09/03/22 13:37 Eos # (Auto) 0.2 10^3/uL (0.0-0.8) 09/03/22 13:37 Baso # (Auto) 0.0 10^3/uL (0.0-0.1) 09/03/22 13:37 Nucleated RBC % (auto) 0 % 09/03/22 13:37 Nucleated RBCs # 0.0 /100WBC 09/03/22 13:37 Sodium 138 mmol/L (136-145) 09/03/22 13:37 Potassium 3.8 mmol/L (3.5-5.1) 09/03/22 13:37 Chloride 100 mmol/L (98-107) 09/03/22 13:37 Carbon Dioxide 27 mmol/L (22-29) 09/03/22 13:37 Anion Gap 14.8 (5-19) 09/03/22 13:37 BUN 14 mg/dL (6-20) 09/03/22 13:37 Creatinine 0.9 mg/dL (0.5-0.9) 09/03/22 13:37 GFR Calculation 68.7 mL/min (90-130) L 09/03/22 13:37 Glucose 83 mg/dL (65-115) 09/03/22 13:37 Calculated Osmolality 286 mOsm/kg (285-295) 09/03/22 13:37 Calcium 9.1 mg/dL (8.5-10.5) 09/03/22 13:37 Total Bilirubin 0.5 mg/dL (0.15-1.2) 09/03/22 13:37 AST 53 U/L (0-32) H 09/03/22 13:37 ALT 61 U/L (0-33) H 09/03/22 13:37 Alkaline Phosphatase 107 U/L (35-105) H 09/03/22 13:37 Total Protein 7.7 g/dL (6.6-8.7) 09/03/22 13:37 Albumin 4.4 g/dL (3.5-5.2) 09/03/22 13:37 Globulin 3.3 g/dL (1.3-4.6) 09/03/22 13:37 Urine Color Yellow (Yellow) 09/03/22 12:25 Urine Appearance Sl hazy (CLEAR) A 09/03/22 12:25 Urine pH 7 (5-7) 09/03/22 12:25 Ur Specific [place] 1.015 (1.005-1.030) 09/03/22 12:25 Urine Protein Neg (Negative) 09/03/22 12:25 Urine Glucose (UA) Norm (Normal) 09/03/22 12:25 Urine Ketones Negative (Negative) 09/03/22 12:25 Urine Blood Neg (Negative) 09/03/22 12:25 Urine Nitrate Negative (Negative) 09/03/22 12:25 Urine Bilirubin Neg (Negative) 09/03/22 12:25 Urine Urobilinogen Norm mg/dL (Negative) 09/03/22 12:25 Ur Leukocyte Esterase Negative (Negative) 09/03/22 12:25 Urine RBC None /hpf (0-2) 09/03/22 12:25 Urine WBC None /hpf (0-5) 09/03/22 12:25 Ur Squamous Epith Cells 0-4 /hpf (0-5) H 09/03/22 12:25 Amorphous Sediment Amorphous phosphates /hpf 09/03/22 12:25 Urine Bacteria Trace /hpf (NONE) 09/03/22 12:25 Urine Mucus None /hpf 09/03/22 12:25 Urine HCG, Qual Negative (Negative) 09/03/22 12:25 Blood Type O Positive 09/03/22 13:37 Rho(D) Type Positive 09/03/22 13:37 Antibody Screen Negative 09/03/22 13:37 Vitals Last Vital Signs Temp 98.4 F 09/04/22 22:00 Pulse 72 09/05/22 10:30 Resp 16 09/05/22 04:00 BP 113/70 09/05/22 10:30 Pulse Ox 96 09/04/22 22:00 O2 Del Method Room Air 09/05/22 04:00 O2 Flow Rate 6 09/04/22 12:11 Discharge Plan Discharge Patient Disposition: Home Condition: Stable Prescriptions: New hydrocodone-acetaminophen 5-325 mg tablet 1 tab PO Q4H PRN (Reason: pain) Qty: 10 0RF acetaminophen 325 mg capsule 325 mg PO Q4H PRN (Reason: fever or pain) Qty: 60 0RF ibuprofen 800 mg tablet 800 mg PO TID PRN (Reason: pain) Qty: 60 0RF Continued sumatriptan succinate [Imitrex] 100 mg tablet 100 mg PO Q2H PRN (Reason: Headache) Rx Instructions: do not exceed 2 doses per 24 hrs metronidazole 500 mg tablet 500 mg PO BID 7 Days Qty: 14 0RF Discharge Orders: Discharge Order (Routine); Ordered 09/05/22 Ordered By: Gamaliel Arora Referrals: Gamaliel Arora MD [Physician] - 2 weeks Discharge Diet: Usual diet Discharge Activity: Limit activity as instructed Patient Instructions: Opioid Safety, Bladder Sling for Women (GEN), Anterior Vaginal Repair (GEN) Activity Restrictions/Additional Instructions: 1. Please call [facility] on next working day to make your post-operative appointment in 2 weeks. 2. Please stay home until you come back to the clinic on first post-hospatilization check up. 3. Please follow instructions on your medications CAREFULLY. 4. If you have abdominal incision, do not cover it unless dressing is necessary because of drainage. OK to shower, but avoid bath. Leave steri-strips until they fall off. If they are still on one week after surgery, you may remove them. 5. If you had vaginal surgery or vaginal repair, Dr. Arora may instruct you to take SITZ bath. 6. Yellow, blood tinged odorous vaginal discharge is usually normal after hysterectomy or vaginal surgeries. 7. No SEXUAL INTERCOURSE, tampons, or douches until you are completely released from the post-operative care. 8. Avoid constipation by eating right and maybe using some Metamucil or Milk of Magnesia. 9. All prescription refills are given during the working hours. Please do no wait till it runs out. Call the clinic at [phone] before your medication runs out. The clinic will get in touch with your doctor to prescribe medications if necessary. 10. Please remain within 40 mile radius from our hospital because emergencies do happen now and then during the post-operative period. 11. If you have stairs at home, take one step at a time slowly and minimize the number of trips. It helps to stay in one floor for the next few days. No lifting except what you can lift by one hand until you are released from the post-operative care. 12. Driving is discouraged until you are well healed. It may be 3-4 weeks before you feel strong enough to drive. You should be able to turn and look through the rear window without pain and you should be able to push the brake pedal very hard without pain before you drive. No fast rules, but SAFETY should be your primary concern. DO NOT drive if you are on sedating medications such as narcotics. 13. Call the clinic (during working hours) to make urgent appointment or go to the Emergency room, if any of the following occurs: i. Vaginal bleeding becomes heavy, more than a period. ii. Incision becomes red and sore, or drains pus. iii. Your TEMPERATURE is over 100.4F or you have chill. iv. IV site becomes red and swollen (a little ``knot?? is usually OK) v. Persistent nausea and vomiting vi. Persistent constipation or diarrhea vii. Rash or allergic reaction to medications. Discharge Attestations AMBULATORY SERVICE REPRESENTATIVE Time Spent in Discharge Care*: greater than 30 min Specific Discharge Activities: Specific discharge activities: evaluating patient/reviewing data (Postvoid residual) Coding Level of Care Code Acute Code for Chg Fwd Diagnoses
[2022-09-05 11:47] VITALS: BP 118/73; PULSE 72; RESP 18
== END 2022-09-05 11:47 | disposition home or self-care (01) ==
LOC: OBGYN 12:19
PROVIDERS: Admitting Provider Obstetrics & Gynecology; PCP Family Medicine; Visit Provider Obstetrics & Gynecology
PROC: 0JQC0ZZ Repair Pelvic Region Subcutaneous Tissue and Fascia, Open Approach (ICD-10-PCS; CPT 57240; principal; 2022-09-04 10:00)
PROC: (CPT 57288; 2022-09-04 10:00)
PROC: 0TJB8ZZ Inspection of Bladder, Via Natural or Artificial Opening Endoscopic (ICD-10-PCS; CPT 52000; 2022-09-04 10:00)
DX: N81.10 Cystocele, unspecified (principal); N39.3 Stress incontinence (female) (male); J44.9 Chronic obstructive pulmonary disease, unspecified; Z86.19 Personal history of other infectious and parasitic diseases
CPT/HCPCS: 57240; 57288; 36415; 51798; 80053; 81001; 84703; 85025; 85027; 86850; 86900; 96374; 96376; C1713; C1762; G0378; J0690; J1100; J1170; J1885; J2250; J2370; J2405; J2704; J2710; J3010; J3490; J7030; J7040; J7121

== ENCOUNTER → 2022-11-15 13:55 | Outpatient (BNVA) | payer BC, MEDICAID, SELFPAY | PROVIDERS: PCP Family Medicine; Visit Provider Obstetrics & Gynecology | DX: N90.89 Other specified noninflammatory disorders of vulva and perineum (principal) | CPT/HCPCS: 88305; 88342 ==

== ENCOUNTER → 2023-01-17 13:39 | Outpatient (BNVA) | payer BC, MEDICAID, SELFPAY | PROVIDERS: PCP Family Medicine; Visit Provider Obstetrics & Gynecology | DX: N73.9 Female pelvic inflammatory disease, unspecified (principal); R10.2 Pelvic and perineal pain; Z20.2 Contact with and (suspected) exposure to infections with a predominantly sexual mode of transmission; N73.0 Acute parametritis and pelvic cellulitis | CPT/HCPCS: 87491; 87591 ==

== ENCOUNTER → 2023-05-22 15:30 | Outpatient (BNVA) | payer BC, MEDICAID, SELFPAY | PROVIDERS: PCP Family Medicine; Visit Provider Obstetrics & Gynecology | DX: Z11.3 Encounter for screening for infections with a predominantly sexual mode of transmission (principal); N76.0 Acute vaginitis; B96.89 Other specified bacterial agents as the cause of diseases classified elsewhere | CPT/HCPCS: 87491; 87591 ==

== ENCOUNTER → 2023-06-26 14:50 | Outpatient (BNVA) | payer BC, MEDICAID, SELFPAY | PROVIDERS: PCP Family Medicine; Visit Provider Obstetrics & Gynecology | DX: N89.8 Other specified noninflammatory disorders of vagina (principal) | CPT/HCPCS: 87491; 87591 ==

== ENCOUNTER 2023-11-12 20:20 | Emergency (ER) | payer BC, MEDICAID, SELFPAY ==
[2023-11-12 20:32] VITALS: BP 139/91; PULSE 102; RESP 16; TEMP 35.6; O2SAT 100; BMI 21.9
[2023-11-12 20:41] VITALS: BP 106/83; PULSE 80; RESP 16; O2SAT 100
--- NOTE | 2023-11-12 20:42 | CTR_ITS ---
PROCEDURE INFORMATION: Exam: CT Head Without Contrast Exam date and time: 11/12/2023 9:08 PM Age: 43 years old Clinical indication: Stroke-like symptoms; Headache; Additional info: LI TECHNIQUE: Imaging protocol: Computed tomography of the head without contrast. Radiation optimization: All CT scans at this facility use at least one of these dose optimization techniques: automated exposure control; mA and/or kV adjustment per patient size (includes targeted exams where dose is matched to clinical indication); or iterative reconstruction. Other technique: STROKE PROTOCOL was implemented. COMPARISON: No relevant prior studies available. RADIATION DOSE METRICS: Total DLP (mGy-cm): 1067 FINDINGS: Brain: Normal. No hemorrhage. Unremarkable white matter. No mass effect. Cerebral ventricles: No ventriculomegaly. Paranasal sinuses: Visualized sinuses are unremarkable. No fluid levels. Mastoid air cells: Visualized mastoid air cells are well aerated. Bones: Unremarkable. No acute fracture. Soft tissues: Unremarkable. CT/CT head wo con* [id number] IMPRESSION: No acute intracranial abnormality. ASSESSMENT: ASPECTS ([place] Stroke Program Early CT Score) is 10.
--- NOTE | 2023-11-12 20:42 | CTR_ITS ---
PROCEDURE INFORMATION: Exam: CTA Head With Contrast, Arteriography Exam date and time: 11/12/2023 9:10 PM Age: 43 years old Clinical indication: Stroke-like symptoms; Headache; Additional info: LI TECHNIQUE: Imaging protocol: Computed tomographic angiography of the head with contrast. Exam focused on the arteries. 3D rendering (Not supervised by radiologist): MIP and/or 3D reconstructed images were created by the technologist. Radiation optimization: All CT scans at this facility use at least one of these dose optimization techniques: automated exposure control; mA and/or kV adjustment per patient size (includes targeted exams where dose is matched to clinical indication); or iterative reconstruction. Contrast material: OMNI 350; Contrast volume: 100 ml; Contrast route: INTRAVENOUS (IV); COMPARISON: CT head wo con* [id number] 11/12/2023 9:08 PM RADIATION DOSE METRICS: Total DLP (mGy-cm): 403 FINDINGS: ANTERIOR CIRCULATION: Right internal carotid artery: Intracranial segment is patent with no significant stenosis. No aneurysm. Right middle cerebral artery: No occlusion or significant stenosis. No aneurysm. Right anterior cerebral artery: No occlusion or significant stenosis. No aneurysm. Left internal carotid artery: Intracranial segment is patent with no significant stenosis. No aneurysm. Left middle cerebral artery: No occlusion or significant stenosis. No aneurysm. Left anterior cerebral artery: No occlusion or significant stenosis. No aneurysm. POSTERIOR CIRCULATION: Right vertebral artery: See Left vertebral artery finding. Left vertebral artery: Dominant left vertebral artery with tiny right vertebral artery which terminates in a right PICA vessel. Normal variant. Basilar artery: No occlusion or significant stenosis. No aneurysm. Right posterior cerebral artery: No occlusion or significant stenosis. No aneurysm. Left posterior cerebral artery: No occlusion or significant stenosis. No aneurysm. Right posterior communicating artery: Tiny right posterior communicating artery. Superior cerebellar arteries: Bilateral superior cerebellar arteries. Brain: No definite mass, mass effect, or midline shift. Cerebral ventricles: No ventriculomegaly. Teeth: Examination is limited secondary to metallic artifact from dental fillings and/or dental hardware. Bones/joints: Unremarkable. No acute fracture. Soft tissues: Unremarkable. Other findings: No large vessel occlusion. PROCEDURE INFORMATION: Exam: CTA Neck With Contrast Exam date and time: 11/12/2023 9:10 PM Age: 43 years old Clinical indication: Stroke-like symptoms; Headache; Additional info: LI TECHNIQUE: Imaging protocol: Computed tomographic angiography of the neck with contrast. Exam focused on the cervical segments of the vasculature. 3D rendering (Not supervised by radiologist): MIP and/or 3D reconstructed images were created by the technologist. Radiation optimization: All CT scans at this facility use at least one of these dose optimization techniques: automated exposure control; mA and/or kV adjustment per patient size (includes targeted exams where dose is matched to clinical indication); or iterative reconstruction. Contrast material: OMNI 350; Contrast volume: 100 ml; Contrast route: INTRAVENOUS (IV); COMPARISON: CT head wo con* [id number] 11/12/2023 9:08 PM RADIATION DOSE METRICS: Total DLP (mGy-cm): 403 FINDINGS: Right common carotid artery: No stenosis. No dissection or occlusion. Right internal carotid artery: No stenosis of the extracranial segment. No dissection or occlusion. Right external carotid artery: No occlusion or stenosis of the origin. Left common carotid artery: No stenosis. No dissection or occlusion. Left internal carotid artery: No stenosis of the extracranial segment. No dissection or occlusion. Left external carotid artery: No occlusion or stenosis of the origin. Right vertebral artery: See Left vertebral artery finding. Left vertebral artery: Dominant left vertebral artery with tiny right vertebral artery. Soft tissues: Bilateral retropectoral saline breast implants between the major and minor pectoralis muscles. Bones/joints: No acute fracture. Other findings: No ICA stenosis by NASCET/SRU criteria. CT/CT angio headneck* [id number] IMPRESSION: No large vessel occlusion. IMPRESSION: 1. Dominant left vertebral artery with tiny right vertebral artery. 2. No ICA stenosis by NASCET/SRU criteria. REFERENCES: NASCET CRITERIA. The degree of stenosis in the cervical segment of the internal carotid artery is based on NASCET criteria. Normal is no stenosis. Mild is less than 50% stenosis. Moderate is 50-69% stenosis. Severe is 70% to 99% stenosis. Total occlusion is no detectable patent lumen.
--- NOTE | 2023-11-12 20:42 | W.ED.NAVMDI ---
HPI - Nausea/Vomiting/Diarrhea General: Chief complaint: Nausea/Vomiting/Diarrhea Stated complaint: severe headache weak nothing in Time Seen by Provider: 11/12/23 20:39 Source: patient Mode of arrival: ambulatory Limitations: no limitations History of Present Illness: 43-year-old female states she is a history of migraines states she is a headache that is been going on throughout the day. Rates her headache a 9 out of 10 states it feels similar to her previous migraine she has photophobia and phonophobia. She states he is also had nausea and vomiting. She denies any fever denies any abdominal pain currently. Associated nausea: Yes Associated symtoms: Reports headache(s) and nausea; Denies chest pain or dysuria Related Data Home Medications Medication Instructions Recorded Confirmed sumatriptan succinate 100 mg 100 mg PO Q2H PRN Headache 06/25/22 09/15/23 tablet (Imitrex) Previous Rx's Medication Instructions Recorded cetirizine 10 mg tablet (All Day 10 mg PO DAILY PRN allergy 01/06/23 Allergy (cetirizine)) symptoms 60 days #60 tabs fluticasone propionate 50 1 spray intranasal DAILY PRN nasal 01/06/23 mcg/actuation nasal congestion #16 grams spray,suspension (Flonase Allergy Relief) metronidazole 500 mg tablet 500 mg PO BID 14 days #28 tabs 09/15/23 azithromycin 500 mg tablet See Rx Instructions PO .COMPLEX #3 09/23/23 tabs ondansetron 4 mg disintegrating 4 mg PO Q6H PRN nausea and 11/12/23 tablet vomiting #14 tabs Allergies Allergy/AdvReac Type Severity Reaction Status Date / Time No Known Allergies Allergy Verified 09/15/23 15:51 Review of Systems Const: Denies: fever(s), chills, body aches or change in appetite Eyes: Denies: blurry vision or eye discomfort ENMT: Denies: throat pain or dental pain Card: Denies: chest pain Resp: Denies: dyspnea GI: Reports: nausea and vomiting; Denies: diarrhea : Denies: dysuria Musc: Denies: neck pain or back pain Skin/Breast: Denies: rash Neuro: Reports: headache(s) PFSH ED PFSH: Medical History Urinary, incontinence, stress female Seizure disorder as a child Hypothyroidism History of femur fracture surgery to both femur with metal rods and plates placed. Surgical History S/P anterior colporrhaphy (~09/04/22) Anterior colporrhaphy augmented with allograft, single incision mid urethral sling, cystoscopy. Coloplast Altis Sling performed by Dr. Arora at [facility]. H/O tubal ligation H/O shoulder surgery 2005- right S/P cholecystectomy H/O fracture of lower leg h/o left leg surgery with metal plates h/o bilateral leg femur fractures S/P conization of cervix 06/27/2021- cervical cone biopsy via [place], performed by Dr. Arora at [facility] H/O breast augmentation History of tonsillectomy Family History Mother Hypertension Hepatitis Thyroid disease Family/Other Breast cancer maternal great aunts, age onset unknown Denies family history of Colon cancer Ovarian cancer Diabetes Clotting disorder Heart disease Hyperlipidemia Anesthesia complication Bleeding disorder Uterine cancer Stroke Social History Substance/Drug Use: former Physical Exam Const: COMMON NORMALS: no acute distress, patient oriented x3 and healthy appearing HENMT: COMMON NORMALS: normocephalic and atraumatic HEAD & SCALP: normocephalic and atraumatic Eye: COMMON NORMALS: Equal, round and reactive pupils present and EOMs intact bilaterally PUPIL: Yes Equal, round and reactive pupils present Neck/C-Spine: COMMON NORMALS: full ROM and supple Chest: COMMONS NORMALS: normal inspection of the chest Resp: COMMON NORMALS: normal respiratory effort Cardio: COMMON NORMALS: regular rate, regular rhythm and No murmurs present (Cardio) RATE: regular rate RHYTHM: regular rhythm GI: COMMON NORMALS: Normal to inspection, nondistended, normoactive bowel sounds present, Soft to palpation, non-tender and no masses PALPATION: Yes Soft to palpation Extremity: COMMON NORMALS: normal to inspection and full ROM Neuro: COMMON NORMALS: patient oriented x3, moves all extremities and no focal motor deficits Psych: COMMON NORMALS: mental status grossly normal, Normal thought process present and cooperative THOUGHT PROCESS: Normal thought process present Skin: COMMON NORMALS: no rashes or lesions noted and no wounds GENERAL SKIN EXAM: no rashes or lesions noted Course Vital Signs: Vital signs: Vital Signs Temperature 96.1 F L 11/12/23 20:32 Pulse Rate 102 H 11/12/23 20:32 Respiratory Rate 16 11/12/23 20:32 Blood Pressure 139/91 11/12/23 20:32 Pulse Oximetry 100 11/12/23 20:32 Oxygen Delivery Me thod Room Air 11/12/23 20:32 MDM - Nausea/Vomiting/Diarrhea Medical Decision Making Patient presents with headaches likely migraine headache her imaging here is normal she has no signs of subarachnoid hemorrhage or an aneurysm. She has no signs of meningitis or headaches improved here white counts normal she stable for discharge we will prescribe her Zofran for home she is follow-up with PCP and return if worsening Medical Records I reviewed the patient's medical records. Lab Data I reviewed the patient's lab results. 11/12/23 21:06 11/12/23 21:[address] 11/12/23 20:42 IMPRESSION: No acute intracranial abnormality. ASSESSMENT: ASPECTS ([place] Stroke Program Early CT Score) is 10. Head/Neck CTA 11/12/23 20:42 IMPRESSION: No large vessel occlusion. IMPRESSION: 1. Dominant left vertebral artery with tiny right vertebral artery. 2. No ICA stenosis by NASCET/SRU criteria. REFERENCES: NASCET CRITERIA. The degree of stenosis in the cervical segment of the internal carotid artery is based on NASCET criteria. Normal is no stenosis. Mild is less than 50% stenosis. Moderate is 50-69% stenosis. Severe is 70% to 99% stenosis. Total occlusion is no detectable patent lumen. Laboratory Results WBC 10.03 10^3/uL (3.29-11.43) 11/12/23 21:06 RBC 5.30 10^6/uL (3.85-5.65) 11/12/23 21:06 Hgb 15.30 g/dL (11.27-16.99) 11/12/23 21:06 Hct 45.9 % (36-47) 11/12/23 21:06 MCV 86.6 fl (85-98) 11/12/23 21:06 MCH 28.9 pg (27-33) 11/12/23 21:06 MCHC 33.3 g/dL (30-55) 11/12/23 21:06 RDW 12.1 % (12.1-15.1) 11/12/23 21:06 Plt Count 375 10^3/cmm (157-399) 11/12/23 21:06 MPV 9.0 fL (7.4-10.4) 11/12/23 21:06 Neut % (Auto) 71.5 % 11/12/23 21:06 Lymph % (Auto) 20.9 % 11/12/23 21:06 [place] % (Auto) 5.5 % 11/12/23 21:06 Eos % (Auto) 1.2 % 11/12/23 21:06 Baso % (Auto) 0.5 % 11/12/23 21:06 Neut # (Auto) 7.17 10^3/uL (1.8-7.7) 11/12/23 21:06 Lymph # (Auto) 2.1 10^3/uL (0.8-4.8) 11/12/23 21:06 [place] # (Auto) 0.6 10^3/uL (0.2-0.9) 11/12/23 21:06 Eos # (Auto) 0.1 10^3/uL (0.0-0.8) 11/12/23 21:06 Baso # (Auto) 0.1 10^3/uL (0.0-0.1) 11/12/23 21:06 Nucleated RBC % (auto) 0 % 11/12/23 21:06 Nucleated RBCs # 0.0 /100WBC 11/12/23 21:06 Sodium 139 mmol/L (136-145) 11/12/23 21:06 Potassium 4.3 mmol/L (3.5-5.1) 11/12/23 21:06 Chloride 99 mmol/L (98-107) 11/12/23 21:06 Carbon Dioxide 28 mmol/L (22-29) 11/12/23 21:06 Anion Gap 16.3 (5-19) 11/12/23 21:06 BUN 15 mg/dL (6-20) 11/12/23 21:06 Creatinine 0.6 mg/dL (0.5-0.9) 11/12/23 21:06 GFR Calculation 109.1 mL/min (90-130) 11/12/23 21:06 Glucose 133 mg/dL (65-115) H 11/12/23 21:06 Calculated Osmolality 291 mOsm/kg (285-295) 11/12/23 21:06 Calcium 10.3 mg/dL (8.5-10.5) 11/12/23 21:06 Total Bilirubin 0.7 mg/dL (0.15-1.2) 11/12/23 21:06 AST 62 U/L (0-32) H 11/12/23 21:06 ALT 85 U/L (0-33) H 11/12/23 21:06 Alkaline Phosphatase 156 U/L (35-105) H 11/12/23 21:06 Total Protein 8.9 g/dL (6.6-8.7) H 11/12/23 21:06 Albumin 4.6 g/dL (3.5-5.2) 11/12/23 21:06 Globulin 4.3 g/dL (1.3-4.6) 11/12/23 21:06 Lipase 18 U/L (13-60) 11/12/23 21:06 All radiology interpretation(s) finalized by discharge Discharge Plan Discharge Patient Disposition: Home Clinical Impression: Headache Condition: Stable Prescriptions: New ondansetron 4 mg tablet,disintegrating 4 mg PO Q6H PRN (Reason: nausea and vomiting) Qty: 14 0RF No Action sumatriptan succinate [Imitrex] 100 mg tablet 100 mg PO Q2H PRN (Reason: Headache) Rx Instructions: do not exceed 2 doses per 24 hrs cetirizine [All Day Allergy (cetirizine)] 10 mg tablet 10 mg PO DAILY PRN (Reason: allergy symptoms) 60 Days Qty: 60 0RF fluticasone propionate [Flonase Allergy Relief] 50 mcg/actuation spray,suspension 1 spray intranasal DAILY PRN (Reason: nasal congestion) Qty: 16 0RF Rx Instructions: administer into each nostril metronidazole 500 mg tablet 500 mg PO BID 14 Days Qty: 28 0RF azithromycin 500 mg tablet See Rx Instructions PO .COMPLEX Qty: 3 0RF Rx Instructions: For 500 mg dose pack: take 500 mg once daily for 3 days PO Discharge Orders: Discharge ED (Routine); Ordered 11/12/23 Ordered By: Reyna Urbano Referrals: Mono Madrigal MD [Primary Care Provider] - 4-7 days Discharge Diet: Advance as tolerated Discharge Activity: Resume usual activity Patient Instructions: General Headache (ED) Coding Level of Care Code ED Client Relationship Manager for Collins Montero
[2023-11-12] MEDS: sodium chloride 0.9% 1,000 ML 999 ML IV (21:06)
[2023-11-12] MEDS: diphenhydrAMINE 50 mg/mL SDV 1mL IVP (21:10)
[2023-11-12] MEDS: ketorolac 30 mg/mL INJ IVP (21:10)
[2023-11-12] MEDS: metoclopramide 5 mg/mL SDV 2 mL 10 MG IVP (21:10)
[2023-11-12] MEDS: iohexol 350 mg/mL 500 mL Btl (per mL) IV (21:11)
[2023-11-12 21:16] LABS: Basophils # 0.1 10^3/uL (0.0-0.1); Basophils % 0.5 %; Eosinophils # 0.1 10^3/uL (0.0-0.8); Eosinophils % 1.2 %; Hematocrit 45.9 % (36-47); Lymphocytes # 2.1 10^3/uL (0.8-4.8); Lymphocytes % 20.9 %; Mean Corpuscular HGB Conc 33.3 g/dL (30-55); Mean Corpuscular Hemoglobin 28.9 pg (27-33); Mean Corpuscular Volume 86.6 fl (85-98); Monocytes # 0.6 10^3/uL (0.2-0.9); Monocytes % 5.5 %; Neutrophils # 7.17 10^3/uL (1.8-7.7); Neutrophils % 71.5 %; Nucleated Red Blood Cells % 0 %; Platelet Count 375 10^3/cmm (157-399); Red Cell Distribution Width 12.1 % (12.1-15.1); White Blood Count 10.03 10^3/uL (3.29-11.43)
[2023-11-12 21:37] LABS: Alanine Aminotransferase 85 U/L (0-33); Albumin Level 4.6 g/dL (3.5-5.2); Alkaline Phosphatase 156 U/L (35-105); Anion Gap 16.3 (5-19); Aspartate Amino Transferase 62 U/L (0-32); Blood Urea Nitrogen 15 mg/dL (6-20); Calcium 10.3 mg/dL (8.5-10.5); Carbon Dioxide 28 mmol/L (22-29); Chloride 99 mmol/L (98-107); Creatinine Clr Calc Pharmacy 119.0204; Globulin 4.3 g/dL (1.3-4.6); Glomerular Filtration Rate 109.1 mL/min (90-130); Glucose 133 mg/dL (65-115); Lipase 18 U/L (13-60); Osmolality Calculated 291 mOsm/kg (285-295); Potassium 4.3 mmol/L (3.5-5.1); Sodium 139 mmol/L (136-145); Total Bilirubin 0.7 mg/dL (0.15-1.2); Total Protein 8.9 g/dL (6.6-8.7)
[2023-11-12 21:41] VITALS: BP 104/75; PULSE 76; RESP 16; O2SAT 100
[2023-11-12 22:11] VITALS: BP 106/83
[2023-11-12 22:31] VITALS: BP 103/71; PULSE 71; RESP 16; O2SAT 99
[2023-11-12 22:32] VITALS: BP 103/71; PULSE 71; RESP 16; TEMP 35.6; O2SAT 99
== END 2023-11-12 22:33 | disposition home or self-care (01) ==
PROVIDERS: Emergency Provider Emergency Medicine; PCP Family Medicine
DX: R51.9 Headache, unspecified (principal)
CPT/HCPCS: 70450; 70496; 70498; 80053; 83690; 85025; 96374; 96375; 99285; J1200; J1885; J2765; J7030; Q9967

== ENCOUNTER 2024-01-13 07:34 | Day surgery (SDC) | payer BC, MEDICAID, SELFPAY ==
[2024-01-13] VITALS (10 sets, daily range): BP systolic 119–136; BP diastolic 69–101; PULSE 69–102; RESP 16–18; TEMP 36.1–36.2; O2SAT 96–100; BMI 21.9
[2024-01-13] MEDS: sodium chloride 0.9% 1,000 ML 30 ML IV (08:14)
[2024-01-13] MEDS: scopolamine 1.5 Patch 1 PATCH TRANSDERMA (08:16)
[2024-01-13] MEDS: metroNIDAZOLE IV 500 MG/100 ML PREMIX 100 MG IV (08:16)
--- NOTE | 2024-01-13 08:24 | P.ANESASSM_ITS ---
Pre-Anesthetic Assessment Height/Weight: Height 1.7 m Weight 63.503 kg Temp Pulse Resp BP Pulse Ox O2 Del Method 97.2 F L 102 H 18 132/92 96 Room Air 01/13/24 07:57 01/13/24 07:57 01/13/24 07:57 01/13/24 07:57 01/13/24 07:57 01/13/24 07:57 Preop Diagnosis: Chronic pelvic pain, dyspareunia Operation Date: 01/13/24 09:00 Proposed Procedures p Laparoscopy Diagnostic 01534, R10.2, N94.10(Not Applicable) - Gamaliel Arora MD Familial anesthetic complications: None Was Beta Deborah taken within 24 hours: N/A Was Clonidine taken within 24 hours: N/A Last intake: Intake Last Liquid Date 01/12/24 Last Liquid Time 22:00 Last Solid Date 01/12/24 Last Solid Time 22:00 Social No alcohol and No tobacco Exam alert, oriented x 3, clear to auscultation bilaterally and regular rate & rhythm Airway Mallampati: Class II Dentition: other (missing teeth) Hepatic Hepatitis (C (per chart review)) Anesthetic Plan ASA status: 2 Anesthesia: General Risk of > 500 ml blood loss (7ml/kg in children): No Medications/Allergies Home Medications Medication Instructions Recorded Confirmed Last Taken Type sumatriptan succinate 100 mg 100 mg PO Q2H PRN Headache 06/25/22 01/05/24 01/04/24 History tablet (Imitrex) Allergies Allergy/AdvReac Type Severity Reaction Status Date / Time No Known Allergies Allergy Verified 01/05/24 08:40 Current Medications Generic Name Dose Route Start Last Admin Trade Name Damaris PRN Reason Stop Dose Admin Metronidazole 500 mg in 100 mls @ 100 mls/hr 01/13/24 07:37 01/13/24 08:16 Flagyl Iv IV 01/13/24 08:36 100 mls/hr [employer] Administration Protocol Sodium Chloride 1,000 mls @ 30 mls/hr 01/13/24 07:45 01/13/24 08:14 Sodium Chloride 0.9% IV 01/14/24 07:44 30 mls/hr .Q24H SERGE Administration PFSH Anesthesia Medical History Urinary, incontinence, stress female Seizure disorder as a child Hypothyroidism History of femur fracture surgery to both femur with metal rods and plates placed. Surgical History S/P anterior colporrhaphy (~09/04/22) Anterior colporrhaphy augmented with allograft, single incision mid urethral sling, cystoscopy. Coloplast Altis Sling performed by Dr. Arora at [facility]. H/O tubal ligation H/O shoulder surgery 2005- right S/P cholecystectomy H/O fracture of lower leg h/o left leg surgery with metal plates h/o bilateral leg femur fractures S/P conization of cervix 06/27/2021- cervical cone biopsy via Carrasquillo, performed by Dr. Arora at [facility] H/O breast augmentation History of tonsillectomy Family History Mother Hypertension Hepatitis Thyroid disease Family/Other Breast cancer maternal great aunts, age onset unknown Denies family history of Colon cancer Ovarian cancer Diabetes Clotting disorder Heart disease Hyperlipidemia Anesthesia complication Bleeding disorder Uterine cancer Stroke Social History Smoking and tobacco/nicotine status: former use of tobacco/nicotine Substance/Drug Use: former Data Anesthesia Cardiac Studies: No Data to Display
[2024-01-13 08:27] LABS: OR HCG Qualitative Urine Negative (Negative)
[2024-01-13 08:33] LABS: Basophils % 0.5 %; Eosinophils # 0.2 10^3/uL (0.0-0.8); Eosinophils % 2.6 %; Hematocrit 40.9 % (36-47); Mean Corpuscular Volume 84.7 fl (85-98); Mean Platelet Volume 9.7 fL (7.4-10.4); Monocytes # 0.5 10^3/uL (0.2-0.9); Monocytes % 9.2 %; Neutrophils # 3.09 10^3/uL (1.8-7.7); Neutrophils % 53.5 %; Nucleated Red Blood Cells % 0 %; Platelet Count 303 10^3/cmm (157-399); Red Blood Count 4.83 10^6/uL (3.85-5.65); Red Cell Distribution Width 11.9 % (12.1-15.1); White Blood Count 5.77 10^3/uL (3.29-11.43)
[2024-01-13 08:43] LABS: Bilirubin Urine Negative (Negative); Blood Urine Negative (Negative); Glucose Urine UA Negative (Normal); Ketones Urine Negative (Negative); Leukocyte Esterase Urine Trace (Negative); Nitrate Urine Negative (Negative); Protein Urine Negative (Negative); Specific Gravity, Urine 1.022 (1.005-1.030); Urine Appearance Cloudy (CLEAR); Urine Color Dark Yellow (Yellow); pH Urine 5.5 (5-7)
[2024-01-13 08:46] LABS: Add Urine Microscopic? YES; Bacteria Urine None Seen /hpf; Hyaline Casts Urine 4.95 /lpf; RBC Urine 0-2 /hpf (0-2)
[2024-01-13 08:52] LABS: Alanine Aminotransferase 88 U/L (0-33); Albumin Level 4.4 g/dL (3.5-5.2); Alkaline Phosphatase 107 U/L (35-105); Anion Gap 12.8 (5-19); Aspartate Amino Transferase 72 U/L (0-32); Blood Urea Nitrogen 16 mg/dL (6-20); Calcium 9.1 mg/dL (8.5-10.5); Carbon Dioxide 27 mmol/L (22-29); Chloride 100 mmol/L (98-107); Creatinine Clr Calc Pharmacy 102.0175; Globulin 3.7 g/dL (1.3-4.6); Glomerular Filtration Rate 91.3 mL/min (90-130); Glucose 113 mg/dL (65-115); Osmolality Calculated 284 mOsm/kg (285-295); Potassium 3.8 mmol/L (3.5-5.1); Sodium 136 mmol/L (136-145); Total Protein 8.1 g/dL (6.6-8.7)
--- NOTE | 2024-01-13 09:15 | W.PM.OPSUD ---
Surgery/Procedure H&P Update DATE OF PROCEDURE: January 13, 2024 DATE H&P PERFORMED: 01/05/24 H&P UPDATE INFORMATION: I have reviewed H&P completed within last 30 days, I have examined patient prior to procedure and No changes to prior documentation PREOP DIAGNOSIS: Chronic pelvic pain, dyspareunia PLANNED PROCEDURE: Operation Date: 01/13/24 09:00 Proposed Procedures p Laparoscopy Diagnostic 77183, R10.2, N94.10(Not Applicable) - Gamaliel Arora MD
[2024-01-13] MEDS: ceFOXitin 2,000 mg SDV 2000 MG IVP (09:23)
[2024-01-13] MEDS: BUPivacaine 0.5% INJ 10 mL INJECTION (10:24)
--- NOTE | 2024-01-13 11:50 | P.OP_ITS ---
Operative Report Date of procedure: January 13, 2024 Pre-op diagnosis: Chronic pelvic pain Post-op diagnosis: same Post-op findings: Normal pelvic anatomy Status post bilateral salpingectomy Procedure done: Diagnostic laparoscopy Surgeon: Gamaliel Arora MD Estimated blood loss (mL): 5 IV fluids (mL): 700 Urine output (mL): 50 Findings: Normal pelvic anatomy status post salpingectomy Procedure: After informed consent, the patient was taken to the operating room where general anesthesia was administered. The patient was examined under anesthesia and found to have a normal uterus with normal adnexa. She was placed in the dorsal lithotomy position and prepped and draped in sterile fashion. Pre- Procedure Time-Out verifying the correct patient identity, correct procedure verified with consent, correct site and side, correct patient position, availability of correct implants and any special equipment or requirements was performed and acknowledge by the OR team. A weighted speculum was placed in the vagina, and the anterior lip of cervix was grasped with the single toothed tenaculum. A uterine manipulator was advanced into the endocervical. Tenaculum was removed after uterine manipulator was secured. The speculum was removed from the vagina. An intraumbilical incision was made with a scalpel. While tenting up on the abdomen, a Verres needle with sleeve was admitted into the intra-abdominal cavity. A saline drop test was performed and noted to be within normal limits. Pneumoperitoneum was attained with 4 liters of carbon dioxide. The Verres needle was removed. A 5 mm trocar and sleeve were admitted into the abdomen and laparoscopic confirmation of location was achieved, A second incision was made 3 cm above the symphysis pubis, and a 5 mm trocar and sleeve were admitted into the abdomen under direct, laparoscopic visualization without complication. A survey revealed normal abdominal anatomy but pelvic survey shows normal uterus, left and right adnexa. A 5 mm blunt probe was advanced through the second trocar sleeve, and light manipulation of ovaries and uterus to assess the posterior aspects was performed. No pathology identified. Carbon dioxide was allowed to escape from the abdomen. The instruments were removed, and skin cover with a bandage. The instruments were removed from the vagina, and excellent hemostasis was noted. The patient tolerated the procedure well, and sponge, lap and needle count were correct times two. The patient taken to the recovery room in good condition.
[2024-01-13] MEDS: ibuprofen 800 mg tablet PO (12:08)
--- NOTE | 2024-01-13 12:20 | ANE.PACU2 ---
Inpatient post-anesthesia follow up: Airway intact: Yes Vital signs: Temperature 97.1 F Pulse Rate 84 Respiratory Rate 18 Blood Pressure 119/80 Pulse Oximetry 99 Oxygen Delivery Me thod Room Air Oxygen Flow Rate Fraction of Inspir ed Oxygen Hydration adequate: Yes Nausea and vomiting: No Pain level: 1 Mental status: Baseline
--- NOTE | 2024-01-13 12:22 | SUR.PHASEII ---
Patient wanted to go home with pain rating of 8. She did not want to wait for meds to be delivered.
== END 2024-01-13 12:22 | disposition home or self-care (01) ==
PROVIDERS: PCP Family Medicine; Visit Provider Obstetrics & Gynecology
PROC: (CPT 49320; principal; 2024-01-13 09:00)
DX: R10.2 Pelvic and perineal pain (principal); G89.29 Other chronic pain; Z86.19 Personal history of other infectious and parasitic diseases; E03.9 Hypothyroidism, unspecified; Z87.891 Personal history of nicotine dependence
CPT/HCPCS: 58661; 36415; 80053; 81001; 81025; 85025; 86850; 86900; J0131; J0694; J1100; J2250; J2704; J3010; J3490; J7030

== ENCOUNTER 2024-07-26 18:43 | Outpatient (CLI) | payer BC, MEDICAID, SELFPAY ==
--- NOTE | 2024-07-26 19:46 | XRR_ITS ---
PROCEDURE INFORMATION: Exam: XR Skull Exam date and time: 07/26/2024 8:09 PM Age: 44 years old Clinical indication: Injury or trauma; Fall; Blunt trauma (contusions or hematomas); Consciousness not specified TECHNIQUE: Imaging protocol: XR of the skull. Views: Minimum of 4 views. COMPARISON: CT angio headneck* [id number] 11/12/2023 9:10 PM FINDINGS: Paranasal sinuses: Well aerated. Bones/joints: No fracture. Soft tissues: Unremarkable. XR/XR skull min 4V* [id number] IMPRESSION: Unremarkable.
== END 2024-07-26 18:44 | disposition home or self-care (01) ==
PROVIDERS: PCP Family Medicine; Visit Provider Family Medicine
DX: R52 Pain, unspecified (principal); W19.XXXA Unspecified fall, initial encounter
CPT/HCPCS: 70260; 73130

== ENCOUNTER 2024-07-28 09:47 | Emergency (ER) | payer BC, MEDICAID, SELFPAY ==
[2024-07-28 09:50] VITALS: BP 123/84; PULSE 101; RESP 18; TEMP 36.4; O2SAT 99; BMI 22.7
--- NOTE | 2024-07-28 09:56 | W.ED.HA ---
HPI - Headache General: Chief Complaint: Headache Stated Complaint: headache Time Seen by Provider: 07/28/24 09:47 History of Present Illness: 44-year-old female present emergency room complaining of headache. She had a fall and hit her head on the ground a few days ago 4 days ago she was seen in the urgent care clinic she had skull x-rays but she has not heard the results though she still reporting a headache frontal wrapping around pulsating. Nausea with no vomiting somewhat photophobia and autophobia noted. Associated symptoms: Deny chest pain, fever(s) or rash Related Data Previous Rx's ?Medication ?Instructions ?Recorded sumatriptan succinate 100 mg 100 mg PO Q2H PRN Headache #10 tabs 07/26/24 tablet (Imitrex) mupirocin 2 % topical ointment 1 applic topical BID #22 grams 07/28/24 (Centany) Allergies Allergy/AdvReac Type Severity Reaction Status Date / Time No Known Allergies Allergy Verified 07/26/24 18:39 Review of Systems Const: Denies: fever(s) or chills Card: Denies: chest pain Resp: Denies: dyspnea GI: Denies: abdominal pain : Denies: dysuria, urinary frequency or urinary urgency Musc: Denies: neck pain or back pain Skin/Breast: Denies: rash Neuro: Reports: headache(s) [facility] ED PFSH: Medical History Head trauma Urinary, incontinence, stress female Seizure disorder as a child Hypothyroidism History of femur fracture surgery to both femur with metal rods and plates placed. Surgical History S/P anterior colporrhaphy (~09/04/22) Anterior colporrhaphy augmented with allograft, single incision mid urethral sling, cystoscopy. Coloplast Altis Sling performed by Dr. Arora at [facility]. H/O tubal ligation H/O shoulder surgery 2005- right S/P cholecystectomy H/O fracture of lower leg h/o left leg surgery with metal plates h/o bilateral leg femur fractures S/P conization of cervix 06/27/2021- cervical cone biopsy via Carrasquillo, performed by Dr. Arora at [facility] H/O breast augmentation History of tonsillectomy Family History Mother Hypertension Hepatitis Thyroid disease Family/Other Breast cancer maternal great aunts, age onset unknown Denies family history of Colon cancer Ovarian cancer Diabetes Clotting disorder Heart disease Hyperlipidemia Anesthesia complication Bleeding disorder Uterine cancer Stroke Social History Smoking and tobacco/nicotine status: former use of tobacco/nicotine Substance/Drug Use: former Physical Exam Const: GENERAL APPEARANCE: cooperative and comfortable ORIENTATION/CONSCIOUSNESS: Yes awake, Yes oriented to person, Yes oriented to place and Yes oriented to time HENMT: COMMON NORMALS: normocephalic, atraumatic and hearing grossly normal bilaterally HEAD & SCALP: normocephalic and atraumatic Resp: COMMON NORMALS: normal respiratory effort, No retractions, No use of accessory muscles and clear to auscultation bilaterally AUSCULTATION: clear to auscultation bilaterally Cardio: COMMON NORMALS: regular rate, regular rhythm and No murmurs present (Cardio) RATE: regular rate RHYTHM: regular rhythm GI: COMMON NORMALS: Soft to palpation and No hepatosplenomegaly present AUSCULTATION: Yes normoactive bowel sounds PALPATION: Yes Soft to palpation, No Tenderness to palpation present (GI), No Guarding due to palpation present (GI) and Yes No hepatosplenomegaly present Extremity: COMMON NORMALS: normal to inspection, capillary refill normal, no clubbing, cyanosis or edema, no calf tenderness and no pedal edema Neuro: SENSORIUM/ORIENTATION: Yes oriented to person, Yes oriented to place and Yes oriented to time Skin: COMMON NORMALS: no rashes or lesions noted GENERAL SKIN EXAM: no rashes or lesions noted Course Vital Signs: Vital signs: Vital Signs Temperature 97.5 F L 07/28/24 09:50 Pulse Rate 70 07/28/24 14:11 Respiratory Rate 17 07/28/24 13:55 Blood Pressure 131/89 07/28/24 14:11 Pulse Oximetry 100 07/28/24 14:11 Oxygen Delivery Me thod Room Air 07/28/24 13:55 MDM - Headache Medical Decision Making CT head and neck negative. Headache improved with medications given reviewed findings with patient we will discharge patient home similarly was postconcussive. Follow-up with primary care. She does have some abrasions on the face and the bridge of the nose no full-thickness abrasions apply topical antibiotic ointment until healed Lab Data Radiology Impressions Cervical Spine CT 07/28/24 10:06 IMPRESSION: No evidence of acute fracture or dislocation. Head CT 07/28/24 10:06 IMPRESSION: 1. No evidence of intracranial hemorrhage or mass effect. 2. No acute intracranial findings. All radiology interpretation(s) finalized by discharge Discharge Plan Discharge Patient Disposition: Home Clinical Impression: Post-concussion headache, Acute neck pain Fall Qualifiers: Encounter type: initial encounter Qualified Code(s): W19.XXXA - Unspecified fall, initial encounter Abrasion of face Qualifiers: Encounter type: initial encounter Qualified Code(s): S00.81XA - Abrasion of other part of head, initial encounter Condition: Stable Prescriptions: New mupirocin [Centany] 2 % ointment 1 applic topical BID Qty: 22 0RF No Action sumatriptan succinate [Imitrex] 100 mg tablet 100 mg PO Q2H PRN (Reason: Headache) Qty: 10 0RF Rx Instructions: do not exceed 2 doses per 24 hrs Discharge Orders: Discharge ED (Routine); Ordered 07/28/24 Ordered By: José oRjo Referrals: Mono Madrigal MD [Primary Care Provider, Family Practice] Discharge Diet: Usual diet Discharge Activity: Increase activity as tolerated Patient Instructions: Opioid Safety, Pain Management Activity Restrictions/Additional Instructions: Thank you for choosing [facility] for your healthcare needs today. It is very important that you follow up as instructed or that you return to the Emergency Department should you have concerns or if your condition changes or worsens in any way. You were seen in the emergency room after a fall CT of your head and neck did not show any acute fractures x-rays done earlier in the week were normal they include your nasal bones there is no sign of fracture. Apply topical antibiotic ointment to the abrasions on your forehead and nose until they are healed. Your tetanus was updated today. Print Language: Indonesian Coding Level of Care Code ED [employer] Manager for [employer]
--- NOTE | 2024-07-28 10:06 | CT_ITS ---
WS: [id number] CT HEAD TECHNIQUE: Noncontrast CT of the head obtained from the skullbase to the vertex. CLINICAL INFORMATION: trauma COMPARISON: 11/12/2023 DLP: 1252.[address] scans at [facility] use at least one of these dose optimization techniques: automated exposure control; mA and/or kV adjustment per patient size (includes targeted exams where dose is matched to clinical indication); or iterative reconstruction. FINDINGS: No evidence of intracranial hemorrhage or mass effect. Ventricular system and basal cisterns are patent. No extra-axial fluid collections. No evidence of mass or mass effect. Normal guerrero-white differentiation. Paranasal sinuses and mastoid air cells are well aerated. .Mild soft tissue edema overlying the frontal calvarium CT/CT head wo con* [id number] IMPRESSION: 1. No evidence of intracranial hemorrhage or mass effect. 2. No acute intracranial findings.
--- NOTE | 2024-07-28 10:06 | CT_ITS ---
WS: [id number] CT CERVICAL TRAUMA TECHNIQUE: Noncontrast CT of the cervical spine with coronal and sagittal reformatted images. CLINICAL INFORMATION: trauma COMPARISON: None. DLP: 1252.[address] scans at [facility] use at least one of these dose optimization techniques: automated exposure control; mA and/or kV adjustment per patient size (includes targeted exams where dose is matched to clinical indication); or iterative reconstruction. FINDINGS: Mild cervical curve. Slight retrolisthesis C3 on C4. Disc narrowing worse at C5- 6. Normal craniocervical junction. Normal C1-C2 articulation. Dens is normal in appearance. Normal occipital condyles. No high-grade spinal canal narrowing. Normal C1 ring. No evidence of acute fracture or dislocation. Normal prevertebral soft tissues. Mastoids air cells are well aerated. CT/CT cervical spin wo con* [id number] IMPRESSION: No evidence of acute fracture or dislocation.
[2024-07-28] MEDS: ketorolac 30 mg/mL INJ IVP (10:21)
[2024-07-28] MEDS: prochlorperazine 10 mg/2 mL Inj IVP (10:21)
[2024-07-28] MEDS: orphenadrine 30 mg/mL Inj 2 mL 60 MG IM (10:22)
[2024-07-28 10:25] VITALS: BP 132/90; PULSE 89; O2SAT 96
[2024-07-28 10:55] VITALS: PULSE 89; O2SAT 96
[2024-07-28 11:25] VITALS: PULSE 78; O2SAT 97
[2024-07-28] MEDS: tetanus-dipt-pertussis 0.5 mL SDV IM (13:52)
[2024-07-28 13:55] VITALS: BP 118/80; PULSE 72; RESP 17; O2SAT 99
[2024-07-28 14:11] VITALS: BP 131/89; PULSE 70; O2SAT 100
== END 2024-07-28 14:13 | disposition home or self-care (01) ==
PROVIDERS: Emergency Provider Family Medicine; PCP Family Medicine
DX: G44.309 Post-traumatic headache, unspecified, not intractable (principal); S00.81XA Abrasion of other part of head, initial encounter; W19.XXXA Unspecified fall, initial encounter; M54.2 Cervicalgia
CPT/HCPCS: 70450; 72125; 90471; 90715; 96372; 96374; 96375; 99285; J0780; J1885; J2360

== ENCOUNTER → 2024-12-25 13:20 | Outpatient (BNVA) | payer BC, SELFPAY | PROVIDERS: PCP Family Medicine; Visit Provider Nurse Practitioner | DX: N89.8 Other specified noninflammatory disorders of vagina (principal); R39.9 Unspecified symptoms and signs involving the genitourinary system | CPT/HCPCS: 81000; 81513; 87481; 87491; 87591; 87661 ==